=== PATIENT | female | born 1970 | race Hispanic/Latino ===

== ENCOUNTER 2016-11-07 21:27 | Emergency (ER) | payer OTHER ==
[~2016-11-07 21:27] MED LIST: AMANTADINE100 MG; AMOXIL500 MG PO; FLEXERIL10 MG PO; IBU800 MG PO; IBUPROFEN600 M1 PO; KEFLEX500 M1 PO; LIDODERM 5% PAT1 PAT TOP; MEDROL DOSEPAK1 PAC PO; METFORMIN HCL500 MG PO; MIRAPEX0.5 M1 PO; MOBIC 15MG15 MG PO; MOTRIN600 MG PO; PRAMIPEXOLE DI1.5 M1 PO; PRAMIPEXOLE DI1.5 MG PO; SELEGILINE HCL PO; SELEGILINE HCL5 M1 PO; SOMA 350MG TAB350 MG PO; TOPIRAMATE25 MG PO; VITAMIN D50000 I1; ZOFRAN ODT4 M1 PO; [UNRECOGNIZED DRUG - OTHER] PO
[2016-11-07 21:37] VITALS: BP 132/70
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
== END 2016-11-07 22:25 ==
LOC: ERH 21:27
DX: S60.552A Superficial foreign body of left hand, initial encounter (principal); S50.851A Superficial foreign body of right forearm, initial encounter; W19.XXXA Unspecified fall, initial encounter
CPT/HCPCS: 90471; 90714

== ENCOUNTER 2016-11-26 22:06 | Emergency (ER) | payer OTHER ==
[2016-11-26 22:16] VITALS: BP 154/86
[2016-11-26 23:01] LABS: ABSOLUTE BASOPHIL COUNT 0 /CUMM (0.0-0.2); MEAN PLATELET VOLUME 10.6 FL (7.4-10.4); PLATELET COUNT 159 /CUMM (130-400)
--- NOTE | 2016-11-26 23:06 | ED GI/GU/ABDOMINAL COMPLAINT ---
History of Present Illness General Chief Complaint: Abdominal Pain/Flank Pain Stated Complaint: ABDOMINAL PAIN Source: patient, family, old records, EMS Exam Limitations: no limitations Vital Signs & Intake/Output Vital Signs & Intake/Output Vital Signs Date Time Temp Pulse Resp B/P Pulse O2 O2 Flow FiO2 Ox Delivery Rate 11/26 2216 98.3 70 16 154/86 95 Room Air ED Intake and Output 11/27 0000 11/26 1200 Intake Total Output Total Balance Patient 160 lb Weight Allergies Coded Allergies: Opioids - Morphine Analogues (BECOMES SO LETHARGIC PEOPLE THINK SHE HAS OVERDOSED MEDS 02/10/16) Reconcile Medications Cephalexin (Keflex) 500 MG CAPSULE 1 TAB PO TID UTI Ibuprofen 600 MG TABLET 1 TAB PO Q6PRN PRN pain with food Ondansetron (Zofran Odt) 4 MG TAB.RAPDIS 1-2 TAB PO Q8H PRN NAUSEA Pramipexole Di-HCl (Pramipexole Dihydrochloride) 1.5 MG TABLET 1 TAB PO TID PARKINSONS (Reported) Pramipexole Di-HCl (Mirapex) 0.5 MG TABLET 1 MG PO BID PARKINSONS (Reported) Selegiline HCl 5 MG CAPSULE 1 CAP PO BID PARKINSONS (Reported) Selegiline HCl 5 MG CAPSULE 1 MG PO BID PARKINSONS (Reported) Triage Note: BIBA FOR C/C L SIDED ABD PAIN AND EPISODE OF VOMITING TODAY. 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 HX PARKINSONS. PT APPEARS LETHARGIC ON ARRIVAL, RESPONSIVE WHEN MOVED. PT WELL KNOWN TO FACILITY WITH HX SAME AT THIS BASELINE OF COGNITION AND LOC Triage Nurses Notes Reviewed? yes LMP (ages 10-50): unknown ? n Is pt currently ? No Onset: Evening Duration: minute(s):, constant, continues in ED Timing: recent history Quality/Severity: aching, moderate, throbbing Location: left lower quadrant Radiation: no radiation Activities at Onset: none Prior Abdominal Problems: similar symptoms Past Sexual History: Unobtainable at this time No Modifying Factors: none Associated Symptoms: abdominal pain, loss of appetite, nausea/vomiting HPI: prior to admission patient complains of left lower quadrant pain described as throbbing nonradiating and moderate to severe associated with nausea vomiting. She received Zofran en route. She denies fever chills chest pain cough shortness of breath headache dysuria rash bleeding. Past History Travel History Traveled to [place] past 21 day No Medical History Any Pertinent Medical History? 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 No Review of Systems Review of Systems Constitutional: Reports: no symptoms. EENTM: Reports: no symptoms. Respiratory: Reports: no symptoms. Cardiovascular: Reports: no symptoms. GI: Reports: see HPI, abdominal pain, nausea, vomiting. Genitourinary: Reports: no symptoms. Musculoskeletal: Reports: no symptoms. Skin: Reports: no symptoms. Neurological/Psychological: Reports: no symptoms. Hematologic/Endocrine: Reports: no symptoms. Immunologic/Allergic: Reports: no symptoms. All Other Systems: Reviewed and Negative Physical Exam Physical Exam General Appearance: well developed/nourished, alert, awake, anxious, moderate distress, obese Head: atraumatic, normal appearance Eyes: Bilateral: normal appearance, PERRL, EOMI, normal inspection. Ears, Nose, Throat, Mouth: hearing grossly normal, moist mucous membrane Neck: normal inspection, supple, full range of motion, normal alignment Respiratory: normal breath sounds, chest non-tender, no respiratory distress, quiet respiration, lungs clear Cardiovascular: regular rate/rhythm, normal peripheral pulses, norml femoral pulses equa Peripheral Pulses: 4+ carotid (R), 4+ carotid (L) Gastrointestinal: normal bowel sounds, soft, non-tender, no organomegaly Back: normal inspection, normal range of motion Extremities: normal range of motion, no ligament instability Neurologic/Psych: awake, alert, oriented x 3, spring inspector II-XII nml as tested, depressed affect, motor weakness Skin: intact, normal color, warm/dry Comments: Patient became upset with staff, swearing and took IV heplock out bleeding on the floor. Left ED without diagnostic evaluation or treatment. Core Measures ACS in differential dx? No Severe Sepsis Present: No Septic Shock Present: No Progress Differential Diagnosis: diverticulitis, kidney stone, UTI/pyelo Plan of Care: Orders Procedure Date/time Status URINALYSIS 11/26 2234 Complete LIPASE 11/26 2234 Complete COMPREHENSIVE METABOLIC PANEL 11/26 2234 Complete CBC WITHOUT DIFFERENTIAL 11/26 2234 Complete Laboratory Tests 11/26/162253: Anion Gap 10, Estimated GFR > 60, BUN/Creatinine Ratio 25.0, Glucose 92, Calcium 9.0, Total Bilirubin 0.8, AST 127 H, ALT 141 H, Alkaline Phosphatase 98, Total Protein 8.4 H, Albumin 4.2, Globulin 4.2, Albumin/Globulin Ratio 1.0 L, Lipase 134, CBC w Diff NO MAN DIFF REQ, RBC 4.82, MCV 81.5, MCH 26.3 L, RDW 15.8 H, MPV 10.6 H, Gran % 53.1, Lymphocytes % 39.5, Monocytes % 6.7, Eosinophils % 0.5 , Basophils % 0.2, Absolute Granulocytes 4.9, Absolute Lymphocytes 3.6 H, Absolute Monocytes 0.6, Absolute Eosinophils 0, Absolute Basophils 0, PUBS MCHC 32.3 L 11/26/162249: Urinalysis LIGHT H, Urine Color YEL, Urine Clarity CLEAR, Urine pH 6.0, Ur Specific [place] >= 1.030, Urine Protein TRACE H, Urine Ketones NEG, Urine Nitrite POS H, Urine Bilirubin NEG, Urine Urobilinogen 1.0, Ur Leukocyte Esterase SMALL H, Ur Microscopic SEDIMENT EXAMINED, Urine WBC 5-10 H, Ur Epithelial Cells FEW, Urine Hemoglobin NEG, Urine Glucose NEG Initial ED EKG: none Departure Departure Time of Disposition: 2304 Disposition: HOME OR SELF CARE Condition: Stable Clinical Impression Primary Impression: Abdominal pain Qualifiers: Abdominal location: left lower quadrant Qualified Code: R10.32 - Left lower quadrant pain Secondary Impressions: Nausea and vomiting Qualifiers: Vomiting type: unspecified Vomiting Intractability: non-intractable Qualified Code: R11.2 - Nausea with vomiting, unspecified Referrals: SHIMA ESQUEDA MD (PCP/Family) Departure Forms: General Discharge Information
[2016-11-26 23:10] LABS: ABSOLUTE EOSINOPHIL COUNT 0 /CUMM (0.0-0.7); ABSOLUTE GRANULOCYTE CT 4.9 /CUMM (1.4-6.5); ABSOLUTE LYMPH COUNT 3.6 /CUMM (1.2-3.4); ABSOLUTE MONOCYTE COUNT 0.6 /CUMM (0.10-0.60); BASOPHIL % 0.2 % (0.0-2.0); EOSINOPHIL % 0.5 % (0-5); GRANULOCYTE % 53.1 % (42.2-75.2); HEMATOCRIT 39.3 % (37-47); MEAN CORPUSCULAR HGB 26.3 PG (27.0-31.0); MEAN CORPUSCULAR HGB CONC 32.3 G/DL (33.0-37.0); MEAN CORPUSCULAR VOLUME 81.5 FL (81.0-99.0); RBC DISTRIBUTION WIDTH 15.8 % (11.5-14.5); RED BLOOD CELL CT 4.82 /CUMM (4.20-5.40); WHITE BLOOD CELL COUNT 9.2 /CUMM (4.8-10.8)
== END 2016-11-26 23:10 ==
LOC: ERH 22:06
PROVIDERS: Emergency Medicine
DX: R10.32 Left lower quadrant pain (principal); R11.2 Nausea with vomiting, unspecified
CPT/HCPCS: 81001; J1885

== ENCOUNTER 2016-12-07 19:59 | Emergency (ER) | payer OTHER ==
[~2016-12-07] VITALS: Ht 162.6 cm; Wt 72.6 kg
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
[2016-12-07 21:30] LABS: ABSOLUTE BASOPHIL COUNT 0 /CUMM (0.0-0.2); ABSOLUTE EOSINOPHIL COUNT 0 /CUMM (0.0-0.7); ABSOLUTE GRANULOCYTE CT 4.3 /CUMM (1.4-6.5); ABSOLUTE LYMPH COUNT 3.1 /CUMM (1.2-3.4); ABSOLUTE MONOCYTE COUNT 0.5 /CUMM (0.10-0.60); BASOPHIL % 0.5 % (0.0-2.0); EOSINOPHIL % 0.6 % (0-5); GRANULOCYTE % 53.7 % (42.2-75.2); HEMATOCRIT 37.6 % (37-47); MEAN CORPUSCULAR HGB 26.5 PG (27.0-31.0); MEAN CORPUSCULAR HGB CONC 32.6 G/DL (33.0-37.0); MEAN CORPUSCULAR VOLUME 81.1 FL (81.0-99.0); MEAN PLATELET VOLUME 9.4 FL (7.4-10.4); PLATELET COUNT 148 /CUMM (130-400); RBC DISTRIBUTION WIDTH 15.9 % (11.5-14.5); RED BLOOD CELL CT 4.64 /CUMM (4.20-5.40)
[2016-12-08 21:33] LABS: ABSOLUTE BASOPHIL COUNT 0 /CUMM (0.0-0.2); ABSOLUTE EOSINOPHIL COUNT 0 /CUMM (0.0-0.7); ABSOLUTE GRANULOCYTE CT 7.2 /CUMM (1.4-6.5); ABSOLUTE MONOCYTE COUNT 0.4 /CUMM (0.10-0.60); BASOPHIL % 0.3 % (0.0-2.0); EOSINOPHIL % 0 % (0-5); GRANULOCYTE % 74.6 % (42.2-75.2); HEMATOCRIT 38.8 % (37-47); MEAN CORPUSCULAR HGB 26.3 PG (27.0-31.0); MEAN CORPUSCULAR HGB CONC 32.3 G/DL (33.0-37.0); MEAN CORPUSCULAR VOLUME 81.4 FL (81.0-99.0); PLATELET COUNT 163 /CUMM (130-400); RED BLOOD CELL CT 4.76 /CUMM (4.20-5.40); WHITE BLOOD CELL COUNT 9.6 /CUMM (4.8-10.8)
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
--- NOTE | 2016-12-09 17:59 | ED PSYCH CRISIS CONSULTATION ---
See Addendum Crisis Consult Basic Assessment Date of Consult: 12/09/16 Responsible Person/Accompanied By: self/BIBA Insurance Authorization: Insurance #1: Insurance name: LAINA RIGGS Phone number: Policy number: [id number] Group number: Authorization number: ED Provider: Patient's ED Provider: ROBYN HURTADO MD Primary Care Physician: Patient's PCP: SHIMA ESQUEDA MD PCP's Current Psychiatrist: none reported Chief Complaint: Psychiatric Related Complaint Patient's Quote: I just want to go home Present Illness: Pt is a 46 yo female BIBA to [facility] ED wednesday evening with c/o of nausea and threats to kill self. Pt was upset that neighbors are smoking and it is upsetting her stomach. Pt presenting in ER as agitated and initially non- compliant. Pt had a prior inpatient psychiatric hospitalization at [facility] in nov 2014. Yesterday pt became increasingly more agitated and required restraints and medication sedation. Today pt continues to present as lethargic. Sleeping throughout day. Difficulty maintaing coherent thought or conversation. Pt mumbles she wants to go home. Pt unable to provide hx or current functioning level. Collateral provided by [facility] and friends John [phone] and Jann . [facility] reports that pt attends social groups. [facility] reports that pt is non-compliant with clinical tx and hasn't followed up in maintaining Seroquel 100mg that she received during most recent [facility] stay. Friends John and Jann report that pt seemed to be stable recently but has been complaining about neighbors smoking upsetting her stomach. They report pt has parkinson's disease and has been experiencing alot of hip pain and is suppossed to be scheduled for an MRI. Reportedly pt doesn't use etoh or substances. Pt reportedly highly susceptible to sedation from medications. Unclear why pt tox screen positive for amphetamines. Pt will need to be h/o in ED for further evaluation when more awake and alert Patient's Address: [address] [place] [address] [address] [place] [address] Other Who Do You Live With? Patient/Self Family/Informants Interviewed: collateral provided by friend Jann Stark Allergies - Coded Allergies: Opioids - Morphine Analogues (BECOMES SO LETHARGIC PEOPLE THINK SHE HAS OVERDOSED MEDS 02/10/16) Current Medications - Scheduled Medications Cephalexin (Keflex) 500 MG CAPSULE 1 TAB PO TID UTI #21 TAB Prescribed by RICA CORTES on 03/12/16 Pramipexole Di-HCl (Pramipexole Dihydrochloride) 1.5 MG TABLET 1 TAB PO TID PARKINSONS #90 (Reported) Entered as Reported by RAMOS MARION on 02/10/162009 Pramipexole Di-HCl (Mirapex) 0.5 MG TABLET 1 MG PO BID PARKINSONS (Reported) Entered as Reported by RAMON CRUZ on 05/13/16 0013 Selegiline HCl 5 MG CAPSULE 1 CAP PO BID PARKINSONS (Reported) Entered as Reported by RAMOS MARION on 02/10/162010 Selegiline HCl 5 MG CAPSULE 1 MG PO BID PARKINSONS (Reported) Entered as Reported by RAMON CRUZ on 05/13/16 0014 Scheduled PRN Medications Ibuprofen 600 MG TABLET 1 TAB PO Q6PRN PRN pain #50 TAB Prescribed by GAVIN FAIR MD on 09/15/16 Ondansetron (Zofran Odt) 4 MG TAB.RAPDIS 1-2 TAB PO Q8H PRN NAUSEA #10 Prescribed by RICA CORTES on 03/12/16 Laboratory Results: Laboratory Tests 12/08/16 2350: Lactic Acid Cancelled 12/08/16 2115: Anion Gap 14, Estimated GFR > 60, BUN/Creatinine Ratio 25.0, Glucose 111 H, Lactic Acid 1.4, Calcium 8.4, Magnesium 1.7, Total Bilirubin 0.9, AST 139 H, ALT 153 H, Alkaline Phosphatase 103, Creatine Kinase 843 H, Troponin I 0.02, Total Protein 7.7, Albumin 3.7, Globulin 4.0, Albumin/Globulin Ratio 0.9 L, TSH 2.800, CBC w Diff NO MAN DIFF REQ, RBC 4.76, MCV 81.4, MCH 26.3 L, RDW 16.0 H, MPV 10.0, Gran % 74.6, Lymphocytes % 21.2, Monocytes % 3.9, Eosinophils % 0, Basophils % 0.3, Absolute Granulocytes 7.2 H, Absolute Lymphocytes 2.0, Absolute Monocytes 0.4, Absolute Eosinophils 0, Absolute Basophils 0, PUBS MCHC 32.3 L, Salicylates < 1.0, Acetaminophen < 10.0 L 12/08/162113: Creatine Kinase Cancelled, Salicylates Cancelled, Acetaminophen Cancelled Past History Past Medical History Neurological: Parkinson's disease, seizure EENT: NONE Cardiovascular: NONE Respiratory: NONE Gastrointestinal: NONE Hepatic: hepatitis C Renal: NONE Musculoskeletal: CHRONIC PAIN Psychiatric: depression Endocrine: NONE Blood Disorders: NONE Cancer(s): NONE 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: 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 Past Surgical History Surgical History: non-contributory Psychosocial History Strengths/Capabilities: has housing, VNA services, attends social club at [facility] Physical Limitations (Interventions): difficulty with ambulation, sometimes has difficulty performing AdL's Psychiatric Treatment History Psych Treatment Psychiatric Treatment Yes Inpatient Treatment Yes Outpatient Treatment Yes Location of Treatment [facility] Reason for Treatment depression Response to Treatment noncompliant with clinical treatment and psychotropic medication Diagnosis by History: Depressive Disorder NOS Substance Use/Abuse History Drug Use/Abuse Substances Used/Abused No Substance Abuse Treatment Substance Abuse Treatment Past Substance Abuse [place] No Comments: Pt denies etoh and substance use. PT tox screen positive for amphetamines Current Mental Status Mental Status Orientation: pt remains sedated; lethargic; difficulty keeping her head up and eyes open. Pt mumbling. Affect: Depressed Speech: Mumbled Neuro-vegetative: Energy Decreased, Sleep Disturbance Appearance Appearance- Dress/Hygiene: pt in hospital gown; disheveled; placed in wheelchair by tech and moved to consultation . Behaviors Thought Process: pt sedated. difficulty processing thoughts Thought Content: pt mumbled wanting to go home. denies si/hi Memory: Impaired Insight: Poor SI/HI Risk Assessment Past Suicidal Ideation/Attempts Yes Current Suicidal Ideation/Att Yes (upon ED arrival) Past Homicidal Ideation/Att: No Current Homicidal Ideation/Attempts No Degree of Intent: None Danger To: Self Gravely Disabled: Inability, Lack of Insight, Poor Judgment Risk Factors: chronic/serious med cond., high anxiety/distress, history of suicide atmpts, SA/MH hospitalized, lives alone, limited support Lethality Ratin PTSD Checklist PTSD Done? patient declined ED Management Sitter: Yes Restraints: Yes DSM5/PS Stressors/Medical Prob Diagnosis' (DSM 5, Stressors, Medical): MDD (F33.2) Neighbors smoking cigarettes/cigars upsetting stomach parkinson's disease right hip pain Current GAF: 25 Departure Disposition Psych Medical Clearance Date: 12/09/16 Medically Cleared at: 1630 Time Started: 1635 Time Ended: 171 Psychiatrist Consulted: Shaw Barker MD Date Disposition Established: 12/09/16 Time Disposition Established: 1729 Plan for Disposition - Modality: H/O Re-eval by crisis in morning Facility: [facility] Rationale for Disposition: Pt continues to be lethargic. Difficulty staying alert. Pt mumbling. unable to complete sentences or maintain coherent thought. Plan to h/o to re-evaluate tomorrow when pt is more alert. Referrals SHIMA ESQUEDA MD (PCP/Family)
[2016-12-10 12:32] VITALS: BP 128/76
== END 2016-12-10 13:11 ==
LOC: ERH 19:59
PROVIDERS: Emergency Medicine
DX: R45.851 Suicidal ideations (principal); R45.1 Restlessness and agitation; R00.0 Tachycardia, unspecified; I10 Essential (primary) hypertension; R56.9 Unspecified convulsions; G20 Parkinson's disease
CPT/HCPCS: 80307; 81001; 93005; 93010; G0463; G0480; J1200; J1630; J3101

== ENCOUNTER 2016-12-13 06:09 | Emergency (ER) | payer OTHER ==
[~2016-12-13] VITALS: Ht 170.2 cm; Wt 79.4 kg
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
[2016-12-13 06:21] VITALS: BP 138/89
[2016-12-13 06:44] LABS: ABSOLUTE BASOPHIL COUNT 0 /CUMM (0.0-0.2); ABSOLUTE EOSINOPHIL COUNT 0.1 /CUMM (0.0-0.7); ABSOLUTE GRANULOCYTE CT 6.2 /CUMM (1.4-6.5); ABSOLUTE LYMPH COUNT 3.1 /CUMM (1.2-3.4); ABSOLUTE MONOCYTE COUNT 0.7 /CUMM (0.10-0.60); BASOPHIL % 0.2 % (0.0-2.0); EOSINOPHIL % 0.9 % (0-5); GRANULOCYTE % 61.7 % (42.2-75.2); HEMATOCRIT 40.2 % (37-47); MEAN CORPUSCULAR HGB 26.5 PG (27.0-31.0); MEAN CORPUSCULAR HGB CONC 32.5 G/DL (33.0-37.0); MEAN CORPUSCULAR VOLUME 81.6 FL (81.0-99.0); MEAN PLATELET VOLUME 9.7 FL (7.4-10.4); PLATELET COUNT 231 /CUMM (130-400); RBC DISTRIBUTION WIDTH 15.6 % (11.5-14.5); RED BLOOD CELL CT 4.93 /CUMM (4.20-5.40); WHITE BLOOD CELL COUNT 10.1 /CUMM (4.8-10.8)
== END 2016-12-13 10:15 ==
LOC: ERH 06:09
PROVIDERS: Emergency Medicine
DX: T68.XXXA Hypothermia, initial encounter (principal); G20 Parkinson's disease; M79.605 Pain in left leg; R56.9 Unspecified convulsions; X31.XXXA Exposure to excessive natural cold, initial encounter
CPT/HCPCS: 81003; 93005; 93010; 96360; 96361; 99291

== ENCOUNTER 2016-12-29 20:51 | Emergency (ER) | payer OTHER ==
[~2016-12-29] VITALS: Ht 157.5 cm; Wt 72.6 kg
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
--- NOTE | 2016-12-29 21:37 | CT SCAN REPORT ---
EXAMINATION: CT HEAD WITHOUT CONTRAST CLINICAL INFORMATION: Evaluate for acute intracranial hemorrhage. COMPARISON: CT scan of the head 12/08/2016. TECHNIQUE: Contiguous axial imaging was performed from the skull base to vertex without intravenous administration of contrast. DLP: 529.16 mGy-cm FINDINGS: There is no acute intracranial hemorrhage or abnormal extra-axial collection. No intracranial mass effect or midline shift. Lateral and third ventricles are normal. No hydrocephalus. Betancur-white matter differentiation is preserved and there is no evidence of acute territorial infarct. The calvarium and skull base are intact. Mastoid air cells and middle ear cavities are well aerated. Visualized paranasal sinuses are well-aerated. IMPRESSION: Normal CT scan of the head. No evidence of acute intracranial hemorrhage.
--- NOTE | 2016-12-29 22:07 | RADIOLOGY REPORT ---
EXAMINATION: XR FOREARM, LEFT CLINICAL INFORMATION: Fall. Pain. COMPARISON: None TECHNIQUE: AP and lateral views of the left forearm were obtained. FINDINGS: No fracture. Radius and ulna are intact. The wrist and elbow are normal. No soft tissue abnormality. IMPRESSION: Normal left forearm.
--- NOTE | 2016-12-29 22:08 | RADIOLOGY REPORT ---
EXAMINATION: XR HIP, LEFT CLINICAL INFORMATION: Fall. Pain. COMPARISON: Pelvis. Left hip. TECHNIQUE: Two views of the left hip. FINDINGS: Bones and soft tissues are normal. No fracture. Alignment is anatomic. Hip joint space is maintained. IMPRESSION: Normal left hip.
[2016-12-29 23:07] VITALS: BP 130/74
== END 2016-12-29 23:13 ==
LOC: ERH 20:51
DX: S09.90XA Unspecified injury of head, initial encounter (principal); S60.212A Contusion of left wrist, initial encounter; M25.552 Pain in left hip; W19.XXXA Unspecified fall, initial encounter; Y93.9 Activity, unspecified; Y92.9 Unspecified place or not applicable
CPT/HCPCS: 73090-LT; 73502-LT

== ENCOUNTER 2017-01-31 19:16 | Emergency (ER) | payer OTHER ==
[~2017-01-31] VITALS: Ht 162.6 cm; Wt 72.6 kg
[2017-01-31 19:32] VITALS: BP 145/74
== END 2017-01-31 20:35 | disposition admitted as inpatient to this hospital (09) ==
LOC: ERH 19:16
DX: L29.8 Other pruritus (principal)
CPT/HCPCS: 99281

== ENCOUNTER 2017-02-05 21:30 | Emergency (ER) | payer OTHER ==
[~2017-02-05] VITALS: Ht 157.5 cm; Wt 65.8 kg
--- NOTE | 2017-02-05 22:25 | ED MVC/FALL/TRAUMA COMPLAINT ---
History of Present Illness General Chief Complaint: Fall Stated Complaint: FALL L SIDED PAIN Source: patient Exam Limitations: no limitations Vital Signs & Intake/Output Vital Signs & Intake/Output Vital Signs Date Time Temp Pulse Resp B/P Pulse O2 O2 Flow FiO2 Ox Delivery Rate 02/05 2345 96.0 56 18 126/74 98 Room Air 02/05 2159 97.9 76 18 142/96 97 Room Air ED Intake and Output 02/06 0000 02/05 1200 Intake Total 0 Output Total Balance 0 Intake, Oral 0 Patient 145 lb Weight Allergies Coded Allergies: Opioids - Morphine Analogues (BECOMES SO LETHARGIC PEOPLE THINK SHE HAS OVERDOSED MEDS 02/10/16) Reconcile Medications Cephalexin (Keflex) 500 MG CAPSULE 1 TAB PO TID UTI Ibuprofen 600 MG TABLET 1 TAB PO Q6PRN PRN pain with food Ondansetron (Zofran Odt) 4 MG TAB.RAPDIS 1-2 TAB PO Q8H PRN NAUSEA Pramipexole Di-HCl (Pramipexole Dihydrochloride) 1.5 MG TABLET 1 TAB PO TID PARKINSONS (Reported) Pramipexole Di-HCl (Mirapex) 0.5 MG TABLET 1 MG PO BID PARKINSONS (Reported) Selegiline HCl 5 MG CAPSULE 1 CAP PO BID PARKINSONS (Reported) Selegiline HCl 5 MG CAPSULE 1 MG PO BID PARKINSONS (Reported) Triage Note: RECEIVED 47 YO FEMALE C/O FELL AT HOME ON TABLE, PT REPORTS LEFT RIBCAGE AREA PAIN, PAIN INCREASES WITH WEIGHT BEARING Triage Nurses Notes Reviewed? yes Onset: Abrupt Timing: single episode today Severity: moderate Method of Injury: fall Loss of Consciousness: no loss of consciousness Modifying Factors: Worsens With: movement, palpation. Associated Symptoms: muscle spasm HPI: 47 yo woman h/o parkinson's, fell approximately 7 hours ago, a mechanical fall. She notes pain in her left upper back, hurts to move. She notes no other injury, no loss of consciousness. No syncopal symptoms. Past History Travel History Traveled to [place] past 21 day No Medical History Any Pertinent Medical History? 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 No Review of Systems Review of Systems Constitutional: Reports: no symptoms. Eyes: Reports: no symptoms. Ears, Nose, Throat, Mouth: Reports: no symptoms. Respiratory: Reports: no symptoms. Cardiovascular: Reports: no symptoms. Gastrointestinal/Abdominal: Reports: no symptoms. Genitourinary: Reports: no symptoms. Musculoskeletal: Reports: no symptoms. Skin: Reports: no symptoms. Neurological/Psychological: Reports: no symptoms. All Other Systems: Reviewed and Negative Physical Exam Physical Exam General Appearance: well developed/nourished, mild distress Head: atraumatic, normal appearance Eyes: Bilateral: normal appearance. Ears, Nose, Throat, Mouth: hearing grossly normal Neck: normal inspection, supple, full range of motion, normal alignment Respiratory: normal breath sounds, chest non-tender, no respiratory distress, quiet respiration, lungs clear Cardiovascular: regular rate/rhythm Gastrointestinal: normal bowel sounds, soft, non-tender, no organomegaly Back: muscle spasm, no vertebral tenderness, left upper back tenderness to palpation Extremities: normal range of motion Neurologic/Psych: no motor/sensory deficits, awake, alert, oriented x 3 Skin: intact, normal color, warm/dry Core Measures ACS in differential dx? No Severe Sepsis Present: No Septic Shock Present: No Progress Differential Diagnosis: contusion vs other. Plan of Care: Orders Procedure Date/time Status CT CHEST WO IV CONTRAST 02/05 2205 Active Diagnostic Imaging: Viewed by Me: CT Scan. Discussed w/RAD: CT Scan. Radiology Impression: chest ct... no rib fx, no abnormality... full report below. Comments: PATIENT: AMIRA CHAPPELL PRESENT AGE: 47 PATIENT ACCOUNT NO: [id number] : 69 LOCATION: [facility] ORDERING PHYSICIAN: TATUM GARCIA MD SERVICE DATE: 02/05/17 EXAM TYPE: CAT - CT CHEST WO IV CONTRAST EXAMINATION: CT CHEST WITHOUT CONTRAST CLINICAL INFORMATION: Fall. Left-sided rib pain. COMPARISON: Chest x-ray 08/27/2013 TECHNIQUE: Multidetector volumetric CT imaging of the chest was done. Axial MIP volume rendering provided. Sagittal and coronal reformatted images were obtained. DLP: 163.17 mGy-cm FINDINGS: LUNGS: The lungs are clear with no evidence of inflammation or nodules. MEDIASTINUM: No fluid collection or hematoma. Soft tissue density in the prevascular retrosternal space consistent with residual thymus tissue. No pericardial effusion. There is vascular calcifications of the coronary arteries. PLEURA: There is no pleural effusion. No pleural mass or thickening. AXILLA: No lymphadenopathy. UPPER ABDOMEN: Calcified granuloma in the superior right lobe of liver. OSSEOUS STRUCTURES: Unremarkable. IMPRESSION: No acute abnormality CT chest. No rib fracture. DICTATED BY: NIXON SALAZAR MD DATE/TIME DICTATED:02/05/172310 VICE PRESIDENT OF MARKETING:KIAH DATE/TIME TRANSCRIBED:02/05/172310 CONFIDENTIAL, DO NOT COPY WITHOUT APPROPRIATE AUTHORIZATION. <Electronically signed in Other Vendor System> SIGNED BY: NIXON SALAZAR MD 02/05/170 Departure Departure Disposition: HOME OR SELF CARE Condition: Stable Clinical Impression Primary Impression: Fall Secondary Impressions: Back pain, Contusion Referrals: SHIMA ESQUEDA MD (PCP/Family) Departure Forms: Customer Survey General Discharge Information Comments discussed at length with patient and family... ct scan benign... pt safe for discharge.
--- NOTE | 2017-02-05 23:20 | CT SCAN REPORT ---
EXAMINATION: CT CHEST WITHOUT CONTRAST CLINICAL INFORMATION: Fall. Left-sided rib pain. COMPARISON: Chest x-ray 08/27/2013 TECHNIQUE: Multidetector volumetric CT imaging of the chest was done. Axial MIP volume rendering provided. Sagittal and coronal reformatted images were obtained. DLP: 163.17 mGy-cm FINDINGS: LUNGS: The lungs are clear with no evidence of inflammation or nodules. MEDIASTINUM: No fluid collection or hematoma. Soft tissue density in the prevascular retrosternal space consistent with residual thymus tissue. No pericardial effusion. There is vascular calcifications of the coronary arteries. PLEURA: There is no pleural effusion. No pleural mass or thickening. AXILLA: No lymphadenopathy. UPPER ABDOMEN: Calcified granuloma in the superior right lobe of liver. OSSEOUS STRUCTURES: Unremarkable. IMPRESSION: No acute abnormality CT chest. No rib fracture.
[2017-02-05 23:45] VITALS: BP 126/74
== END 2017-02-06 00:03 ==
LOC: ERH 21:30
DX: T14.8 Other injury of unspecified body region (principal); M54.9 Dorsalgia, unspecified; W19.XXXA Unspecified fall, initial encounter; Y92.009 Unspecified place in unspecified non-institutional (private) residence as the place of occurrence of the external cause; Y92.9 Unspecified place or not applicable

== ENCOUNTER 2017-03-19 12:12 | Inpatient (IN) | payer OTHER ==
[~2017-03-19] VITALS: Ht 154.9 cm; Wt 73.5 kg
--- NOTE | 2017-03-19 12:17 | ED PSYCHIATRIC COMPLAINT ---
History of Present Illness General Chief Complaint: Psychiatric Related Complaint Stated Complaint: BIBA +SI, PSYCH Source: patient, old records, EMS, police Exam Limitations: clinical condition Vital Signs & Intake/Output Vital Signs & Intake/Output Vital Signs Date Time Temp Pulse Resp B/P B/P Pulse O2 O2 Flow FiO2 Mean Ox Delivery Rate 03/19 1819 96.9 76 133/76 03/19 1510 97.9 80 18 128/74 97 Room Air 03/19 1236 98.4 84 18 138/79 97 Allergies Coded Allergies: Opioids - Morphine Analogues (BECOMES SO LETHARGIC PEOPLE THINK SHE HAS OVERDOSED MEDS 02/10/16) celecoxib (From CELEBREX) (UNKNOWN 03/19/17) cyclobenzaprine (UNKNOWN 03/19/17) Reconcile Medications Pramipexole Di-HCl (Pramipexole Dihydrochloride) 1.5 MG TABLET 1 TAB PO TID PARKINSONS (Reported) Selegiline HCl 5 MG CAPSULE 1 CAP PO BID PARKINSONS (Reported) Triage Nurses Notes Reviewed? yes Onset: Abrupt Duration: JUST PRIOR TO ARRIVAL Timing: single episode today Severity: severe Associated Symptoms: anxiety HPI: 47 year old female found by police trying to jump off a bridge. She was standing on the other side of the bridge and leaning backwards. EMS received multiple 911 calls. They were able to distract her and multiple people grabbed her and pulled her back over the railing. According to PD patient evicted from her apartment this week. History of parkinsons disease, depression, Hep C. Past History Travel History Traveled to [place] past 21 day No Medical History Any Pertinent Medical History? 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 No Review of Systems Review of Systems Constitutional: Denies: fever. EENTM: Reports: no symptoms. Respiratory: Reports: no symptoms. Cardiovascular: Reports: no symptoms. GI: Reports: no symptoms. Genitourinary: Reports: no symptoms. Musculoskeletal: Reports: no symptoms. Skin: Reports: no symptoms. Neurological/Psychological: Reports: anxiety, depressed, emotional problems. Hematologic/Endocrine: Reports: no symptoms. Immunologic/Allergic: Reports: no symptoms. All Other Systems: Reviewed and Negative Physical Exam Physical Exam General Appearance: well developed/nourished, alert, awake, anxious, mild distress, moderate distress Head: atraumatic Eyes: Bilateral: PERRL. Neck: normal inspection, supple Respiratory: normal breath sounds, chest non-tender, no respiratory distress Cardiovascular: regular rate/rhythm Neurological/Psychiatric: awake, agitated, alert, TEARFUL Appearance/Memory/Insight: disheveled, impaired insight Behavoir/Eye Contact/Speech: uncooperative, increased rate of speech Thoughts/Hallucinations: UNABLE TO ASSESS SAD PERSONS Done? unobtained due to conditi Progress Differential Diagnosis: anxiety, agitation, suicidal ideation Plan of Care: Orders Procedure Date/time Status Regular Diet 03/20 B Active Patient Data - inpatient psych 03/19 2145 Active Admit to inpatient psych 03/19 214 Active EKG 03/19 2145 Active Vital Signs 03/19 1816 Active Inpt Psych Teach/Educate 03/19 1816 Active Nutritional Intake, Monitor 03/19 1816 Active Inpt Psych Auricular Acupunctu 03/19 1816 Active Admit to inpatient psych 03/19 1448 Active ED CRISIS PSYCH CONSULT 03/19 1314 Active THYROID STIMULATING HORMONE 03/19 1235 Active THYROXINE 03/19 1235 Active FREE T4 03/19 1235 Active Intake & Output 03/19 1223 Complete Continuous Observation Monitor 03/19 1220 Complete URINE DRUGS OF ABUSE 03/19 1220 Complete HUMAN BETA HCG SCREEN 03/19 1220 Active ETHANOL 03/19 1220 Active COMPREHENSIVE METABOLIC PANEL 03/19 1220 Active CBC WITHOUT DIFFERENTIAL 03/19 1220 Complete Lab Add-on Test 03/19 UNK Active Nursing Misc 03/19 UNK Active Activity/Ambulation 03/19 UNK Active Current Medications Sig/Lopez Start time Last Medication Dose Stop Time Status Admin Pramipexole 1.5 MG 5PM 03/20 1700 AC Dihydrochloride (Mirapex) Pramipexole 3 MG 0700 03/20 0700 AC Dihydrochloride (Mirapex) Selegiline HCl 5 MG 0700,1700 03/20 0700 AC (Eldepryl 5MG) Acetaminophen 650 MG Q6-PRN PRN 03/19 2145 AC (Tylenol) Al Hydroxide/Mg 30 ML Q4-6 PRN PRN 03/19 2145 AC Hydroxide (Maalox Plus) Trazodone HCl 50 MG AT BEDTIME NEED.. 03/19 2145 AC (Desyrel) Lorazepam 2 MG ONCE ONE 03/19 1230 CAN (Ativan) 03/19 1231 Laboratory Tests 03/19/17 123: Serum Alcohol < 10.0 03/19/17 123: Anion Gap 14, Estimated GFR > 60, BUN/Creatinine Ratio 25.0, Glucose 114 H, Calcium 8.9, Total Bilirubin 0.7, AST 119 H, ALT 139 H, Alkaline Phosphatase 107, Total Protein 7.9, Albumin 4.0, Globulin 3.9, Albumin/Globulin Ratio 1.0 L , TSH Pending, Free T4 0.83, Thyroxine (T4) 9.7, Total Beta HCG NEGATIVE, CBC w Diff NO MAN DIFF REQ, RBC 4.79, MCV 80.6 L, MCH 26.3 L, RDW 15.6 H, MPV 9.5, Gran % 52.3, Lymphocytes % 41.1, Monocytes % 6.0, Eosinophils % 0.2, Basophils % 0.4, Absolute Granulocytes 4.3, Absolute Lymphocytes 3.4, Absolute Monocytes 0.5 , Absolute Eosinophils 0, Absolute Basophils 0, PUBS MCHC 32.6 L, Urine Opiates Screen < 100.00, Methadone Screen < 40, Barbiturate Screen < 60, Ur Phencyclidine Scrn < 6.00, Amphetamines Screen > 1450.0 H, U Benzodiazepines Scrn < 85, Urine Cocaine Screen < 50, Urine Cannabis Screen < 5.00 PATIENT CALMING DOWN AFTER ARRIVAL TO HOSPITAL. LABS, DRUG SCREEN, CRISIS CONSULT ORDERED. 14:48 PATIENT ADMITTED TO [facility] (KRYSTAL LEMUS,AARON) Departure Departure Time of Disposition: 8 Disposition: STILL A PATIENT Condition: Stable Clinical Impression Primary Impression: Suicidal ideation Secondary Impressions: Depression Referrals: SHIMA ESQUEDA MD (PCP/Family) Departure Forms: Customer Survey General Discharge Information Psych Admission Note Psychiatric Admission: I have seen and evaluated AMIRA CHAPPELL. I have also reviewed all the pertinent lab results and diagnostic results. AMIRA CHAPPELL will be admitted to our inpatient Psychiatric unit for treatment and care.
[2017-03-19 12:47] LABS: ABSOLUTE BASOPHIL COUNT 0 /CUMM (0.0-0.2); ABSOLUTE EOSINOPHIL COUNT 0 /CUMM (0.0-0.7); ABSOLUTE GRANULOCYTE CT 4.3 /CUMM (1.4-6.5); ABSOLUTE LYMPH COUNT 3.4 /CUMM (1.2-3.4); ABSOLUTE MONOCYTE COUNT 0.5 /CUMM (0.10-0.60); BASOPHIL % 0.4 % (0.0-2.0); EOSINOPHIL % 0.2 % (0-5); GRANULOCYTE % 52.3 % (42.2-75.2); HEMATOCRIT 38.6 % (37-47); MEAN CORPUSCULAR HGB 26.3 PG (27.0-31.0); MEAN CORPUSCULAR HGB CONC 32.6 G/DL (33.0-37.0); MEAN CORPUSCULAR VOLUME 80.6 FL (81.0-99.0); MEAN PLATELET VOLUME 9.5 FL (7.4-10.4); PLATELET COUNT 160 /CUMM (130-400); RBC DISTRIBUTION WIDTH 15.6 % (11.5-14.5); RED BLOOD CELL CT 4.79 /CUMM (4.20-5.40); WHITE BLOOD CELL COUNT 8.2 /CUMM (4.8-10.8)
--- NOTE | 2017-03-19 14:15 | ED PSYCH CRISIS CONSULTATION ---
Crisis Consult Basic Assessment Date of Consult: 03/19/17 Responsible Person/Accompanied By: self Insurance Authorization: Insurance #1: Insurance name: LAINA RIGGS Phone number: Policy number: [id number] Group number: Authorization number: ED Provider: Patient's ED Provider: AARON RICE MD Primary Care Physician: Patient's PCP: SHIMA ESQUEDA MD PCP's Current Psychiatrist: none Chief Complaint: Psychiatric Related Complaint Patient's Quote: "No one will help me." Present Illness: Pt is a 47yo Single Female who was brought in by Police after they stopped her from jumping off a bridge. Pt has to be pulled back over the railing after she was on the other side leaning backwards on the wet bridge in the rain. Pt denies current SI and has no insight into the severity of her actions. "I just wanted people to listen to me. No one will help me." Pt explains that she is getting evicted from her apartment because her cousin was living with her and he was not supposed to be living with her. Pt was tearful as she speaks. Pt also reports that she has had ongoing conflict with her neighbors because they smoke and she can not be around smoke because of her parkinson's disease. Pt denies that she feels depressed as she cries while speaking. She reports poor sleep and poor appetite and feeling of hopelessness and helplessness. Pt has a hx of prior inpt psych tx and was last on CPS in 2014. Pt is currently in out pt tx at [facility]. Crisis spoke ti Yuli at [facility] who explained that Pt has no been compliant with her out pt tx and does not take psych meds and refuses to see the psychiatrist. Pt has only has case management services through [facility]. Yuli explained that pt has received multiple warnings about ot being allowed to have people stay with her, but has not listened. She got an eviction notice yesterday informing that she has 30 days to move. Pt will keep her section [address] and will have another place to move to. Yuli also informed that pt admitted to a peer that she was going to go to the bridge to get media attention because she thinks no one is helping her. Case reviewed with Dr. Phillip of Psychiatry and has poor insight, poor judgement, and poor impulse control. She is aq danger to herself. Pt will be admitted to [facility]. Pt agreed to sign in. Patient's Address: [address] [place] [address] [place] [address] Other Who Do You Live With? Patient/Self Family/Informants Interviewed: [facility] Allergies - Coded Allergies: Opioids - Morphine Analogues (BECOMES SO LETHARGIC PEOPLE THINK SHE HAS OVERDOSED MEDS 02/10/16) Current Medications - Scheduled Medications Cephalexin (Keflex) 500 MG CAPSULE 1 TAB PO TID UTI #21 TAB Prescribed by RICA CORTES on 03/12/16 Pramipexole Di-HCl (Pramipexole Dihydrochloride) 1.5 MG TABLET 1 TAB PO TID PARKINSONS #90 (Reported) Entered as Reported by RAMOS MARION on 02/10/162009 Pramipexole Di-HCl (Mirapex) 0.5 MG TABLET 1 MG PO BID PARKINSONS (Reported) Entered as Reported by RAMON CRUZ on 05/13/16 0013 Selegiline HCl 5 MG CAPSULE 1 CAP PO BID PARKINSONS (Reported) Entered as Reported by RAMOS MARION on 02/10/162010 Selegiline HCl 5 MG CAPSULE 1 MG PO BID PARKINSONS (Reported) Entered as Reported by RAMON CRUZ on 05/13/16 0014 Scheduled PRN Medications Ibuprofen 600 MG TABLET 1 TAB PO Q6PRN PRN pain #50 TAB Prescribed by GAVIN FAIR MD on 09/15/16 Ondansetron (Zofran Odt) 4 MG TAB.RAPDIS 1-2 TAB PO Q8H PRN NAUSEA #10 Prescribed by RICA CORTES on 03/12/16 Laboratory Results: Laboratory Tests 03/19/17 1235: Serum Alcohol < 10.0 03/19/17 1235: Anion Gap 14, Estimated GFR > 60, BUN/Creatinine Ratio 25.0, Glucose 114 H, Calcium 8.9, Total Bilirubin 0.7, AST 119 H, ALT 139 H, Alkaline Phosphatase 107, Total Protein 7.9, Albumin 4.0, Globulin 3.9, Albumin/Globulin Ratio 1.0 L , Total Beta HCG NEGATIVE, CBC w Diff NO MAN DIFF REQ, RBC 4.79, MCV 80.6 L, MCH 26.3 L, RDW 15.6 H, MPV 9.5, Gran % 52.3, Lymphocytes % 41.1, Monocytes % 6.0, Eosinophils % 0.2, Basophils % 0.4, Absolute Granulocytes 4.3, Absolute Lymphocytes 3.4, Absolute Monocytes 0.5, Absolute Eosinophils 0, Absolute Basophils 0, PUBS MCHC 32.6 L, Urine Opiates Screen < 100.00, Methadone Screen < 40, Barbiturate Screen < 60, Ur Phencyclidine Scrn < 6.00, Amphetamines Screen > 1450.0 H, U Benzodiazepines Scrn < 85, Urine Cocaine Screen < 50, Urine Cannabis Screen < 5.00 Past History Past Medical History Neurological: Parkinson's disease, seizure EENT: NONE Cardiovascular: NONE Respiratory: NONE Gastrointestinal: NONE Hepatic: hepatitis C Renal: NONE Musculoskeletal: CHRONIC PAIN Psychiatric: depression Endocrine: NONE Blood Disorders: NONE Cancer(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 Past Surgical History Surgical History: non-contributory Psychosocial History Strengths/Capabilities: has housing, VNA services, attends social club at [facility] Physical Limitations (Interventions): difficulty with ambulation, sometimes has difficulty performing AdL's Psychiatric Treatment History Psych Treatment Psychiatric Treatment Yes Inpatient Treatment Yes Outpatient Treatment Yes Location of Treatment [facility] and [facility] Reason for Treatment Depression Dates of Treatment multiple Response to Treatment non-compliant Diagnosis by History: Depression Substance Use/Abuse History Drug Use/Abuse Substances Used/Abused No Substance Abuse Treatment Substance Abuse Treatment Past Substance Abuse [place] No Inpatient Treatment No Outpatient Treatment No Current Mental Status Mental Status Orientation: Person, Place, Situation Affect: Anxious, Depressed, Hopeless, Sad Speech: WNL Neuro-vegetative: Anhedonia, Appetite Decreased, Helpless, Sleep Disturbance Appearance Appearance- Dress/Hygiene: unkempt, disheveled, tearful Behaviors Thought Process: WNL Thought Content: WNL Memory: WNL Insight: Poor SI/HI Risk Assessment Past Suicidal Ideation/Attempts Yes Current Suicidal Ideation/Att No Past Homicidal Ideation/Att: No Current Homicidal Ideation/Attempts No Degree of Intent: made attempt Danger To: Self Gravely Disabled: Lack of Insight, Poor Impulse Control, Poor Judgment Risk Factors: access to lethal means, chronic/serious med cond., high anxiety/ distress, history of suicide atmpts, SA/MH hospitalized, poor impulse control Lethality Ratin (most severe) PTSD Checklist PTSD Done? patient declined ED Management Sitter: Yes Restraints: No DSM5/PS Stressors/Medical Prob Diagnosis' (DSM 5, Stressors, Medical): Unspecified Depression F32.9 Current GAF: 25 Comments: Parkinson's Disease, hx of seizure Departure Disposition Psych Medical Clearance Date: 03/19/17 Medically Cleared at: 1400 Time Started: 1400 Time Ended: 0 Psychiatrist Consulted: Kenji LEMUS,Edward Date Disposition Established: 03/19/17 Time Disposition Established: 1429 Plan for Disposition - Modality: Inpatient Psychiatry Facility: [facility] Rationale for Disposition: safety and stabilization of sx Type of IP Admission: Voluntary Referrals SHIMA ESQUEDA MD (PCP/Family)
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
[2017-03-19 18:19] VITALS: BP 133/76
--- NOTE | 2017-03-19 22:03 | History & Physical ---
General Information and HPI MD Statement: I have seen and personally examined AMIRA CHAPPELL and documented this H&P. The patient is a 47 year old F who presented with a patient stated chief complaint of [suicidal ideation]. Source of Information: patient Exam Limitations: no limitations History of Present Illness: 47 yo F with h/o Parkinson's disease, untreated Hep C, prediabetes, chronic anemia, is admitted to Inpatient psychiatry for suicidal ideation and depression. Please refer to Psych H and P for details. She follows Dr. Velasquez at [facility] forr her Parkinson's disease which she was diagnosed with after her first child about 15-20 yrs ago at [place]. She denies smoking, alcohol use or drugs. She currently denies chest pain, dyspnea, GI or symptoms. Allergies/Medications Allergies: Coded Allergies: Opioids - Morphine Analogues (BECOMES SO LETHARGIC PEOPLE THINK SHE HAS OVERDOSED MEDS 02/10/16) celecoxib (From CELEBREX) (UNKNOWN 03/19/17) cyclobenzaprine (UNKNOWN 03/19/17) Home Med list Pramipexole Di-HCl (Pramipexole Dihydrochloride) 1.5 MG TABLET 1 TAB PO TID PARKINSONS (Reported) Selegiline HCl 5 MG CAPSULE 1 CAP PO BID PARKINSONS (Reported) Compliance With Home Meds: FAIR Past History Travel History Traveled to [place] past 21 day No Medical History Neurological: Parkinson's disease EENT: NONE Cardiovascular: HX. BRADYCARDIA HX. PALPITATIONS Respiratory: NONE Gastrointestinal: NONE Hepatic: HEPATITIS C Renal: NONE Musculoskeletal: CHRONIC PAIN Psychiatric: depression Endocrine: PREDIABETES Blood Disorders: anemia Cancer(s): NONE TRAINING FACILITATOR/Reproductive: endometriosis History of MRSA: No History of VRE: No History of CDIFF: No Isolation History: Standard Tetanus Vaccine: 11/07/16 Surgical History Surgical History: Past Family/Social History Family History Relations & Conditions if any FATHER (HT[place], [place], [place].). MOTHER (HTN, [place], [place].). SISTER (Two sisters have Parkinson's disease.). Siblings (DM and HTN.). Psychosocial History Where do you live? Home Who Do You Live With? self Services at Home: None Primary Language: Micronesian Smoking Status: Never Smoked ETOH Use: denies use Illicit Drug Use: denies illicit drug use Functional Ability ADLs Independent: dressing, eating, toileting, bathing. Ambulation: independent IADLs Independent: housework, telephone, transportation, medication admin. Employment History Employment Disability Profession/Employer [employer] Review of Systems Review of Systems Constitutional: Denies: chills, fever, weakness. EENTM: Reports: no symptoms. Cardiovascular: Denies: chest pain, orthopena, palpitations. Respiratory: Denies: cough, short of breath, sputum production. GI: Denies: abdominal pain, diarrhea, nausea, vomiting. Genitourinary: Denies: dysuria, frequency, hematuria. Musculoskeletal: Reports: no symptoms. Neurological/Psychological: Reports: see HPI. All Other Systems: Reviewed and Negative Exam & Diagnostic Data Last 24 Hrs of Vital Signs/I&O Vital Signs Date Time Temp Pulse Resp B/P B/P Pulse O2 O2 Flow FiO2 Mean Ox Delivery Rate 03/19 1819 96.9 76 133/76 03/19 1510 97.9 80 18 128/74 97 Room Air 03/19 1236 98.4 84 18 138/79 97 Intake & Output 03/20 0800 03/20 0000 03/19 1600 Intake Total 0 Output Total Balance 0 Intake, Oral 0 Patient 162 lb 140 lb Weight Physical Exam General Appearance Alert, Oriented X3, Cooperative, No Acute Distress Skin No Significant Lesion HEENT Atraumatic, PERRLA Neck Supple Cardiovascular Regular Rate, Normal S1, Normal S2, No Murmurs Lungs Clear to Auscultation, Normal Air Movement Abdomen Normal Bowel Sounds, Soft, No Tenderness Neurological Exam Findings: Normal Gait, Strength at 5/5 X4 Ext, Sensation Intact, Cranial Nerves 3-12 NL, Slow speech Cranial Nerves II through XII: Grossly intact Extremities No Edema, Normal Pulses, No Tenderness/Swelling Last 24 Hrs of Labs/Rico: Laboratory Tests 03/19/17 1235: Serum Alcohol < 10.0 03/19/17 1235: Anion Gap 14, Estimated GFR > 60, BUN/Creatinine Ratio 25.0, Glucose 114 H, Calcium 8.9, Total Bilirubin 0.7, AST 119 H, ALT 139 H, Alkaline Phosphatase 107, Total Protein 7.9, Albumin 4.0, Globulin 3.9, Albumin/Globulin Ratio 1.0 L , TSH 2.490, Free T4 0.83, Thyroxine (T4) 9.7, Total Beta HCG NEGATIVE, CBC w Diff NO MAN DIFF REQ, RBC 4.79, MCV 80.6 L, MCH 26.3 L, RDW 15.6 H, MPV 9.5, Gran % 52.3, Lymphocytes % 41.1, Monocytes % 6.0, Eosinophils % 0.2, Basophils % 0.4, Absolute Granulocytes 4.3, Absolute Lymphocytes 3.4, Absolute Monocytes 0.5 , Absolute Eosinophils 0, Absolute Basophils 0, PUBS MCHC 32.6 L, Urine Opiates Screen < 100.00, Methadone Screen < 40, Barbiturate Screen < 60, Ur Phencyclidine Scrn < 6.00, Amphetamines Screen > 1450.0 H, U Benzodiazepines Scrn < 85, Urine Cocaine Screen < 50, Urine Cannabis Screen < 5.00 Diagnostic Data EKG Results -- CXR Results -- Assessment/Plan Assessment: 47 yo F admitted to Inpatient Psychiatry for depression and suicidal ideation. 1. Continue management per Psych team. 2. Parkinson's disease. Continue pramipexole and selegiline (dosed at 7 am and 5 pm). 3. Transaminitis in the setting of Hep C. Patient should follow up with PCP and GI for eventual management of Hep C. 4. Microcytic anemia. Stable. 5. Prediabetes. HbA1C - 6.3 (Sep 2016). DVT ppx low risk, early ambulation. As Ranked By This Provider Problem List: 1. Depression 2. Suicidal behavior 3. Parkinsons disease 4. Transaminitis Miscellaneous Miscellaneous Documentation Attending Case Discussed With: Mohan Fisher MD Primary Care Physician: SHIMA ESQUEDA MD Patient sees these Specialists Dr. Ron [facility] Level of Patient Care: SETH Carranza MD Review Statement Attending Statement Attending MD Statement: examined this patient, discuss w/resident/PA/REFRIGERATION SYSTEMS INSTALLER
--- NOTE | 2017-03-19 22:03 | Admission Certification ---
Admission Certification Certification Statement - As attending physician, I certify that at the time of - admission, based on clinical presentation, severity of - symptoms, need for further diagnostic testing and - therapeutic interventions, and risk of adverse outcomes - without in-hospital treatment, in my clinical assessment, - this patient requires an acute hospital stay for a minimum - of two nights or longer. I have also considered psychsocial - factors such as support system, advanced age, financial - issues, cognitive issues, and failed out-patient treatments, - past re-admission history, safety of patient, and lack of - compliance as applicable. Specific rationale supporting this admission is: Depression, suicidal ideation.
[2017-03-20 07:55] VITALS: BP 121/80
[2017-03-20 12:24] VITALS: BP 108/59
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
[2017-03-20 15:37] VITALS: BP 118/81
[2017-03-20 20:14] VITALS: BP 123/66
[2017-03-21 07:56] VITALS: BP 117/78
[2017-03-21 12:03] VITALS: BP 112/72
--- NOTE | 2017-03-21 12:52 | CP SOUTH PROGRESS NOTE PSYCH ---
Psych (Inpt) Progress Note Progress Note Include the following elements, when applicable: Involvement in the active treatment of the patient with behavioral observations of the patient and the patient's response to the treatment. Review of the ongoing treatment process in the context of the treatment plan. Indication of how multi-disciplinary staff members are carrying out the treatment plan. Plans for future interventions and recommendations for revision of the treatment plan. Liaison with other physicians/providers. Progress Note: Chart reviewed and progress d/w nursing staff. Interviewed patient this morning. Extremely dysphoric and irritable. "This place is so boring. they never get my meds right. I like mac so much better. I want to go home". No insight evidenced regarding dangerous behavior or accompanying depressive symptoms. She denies SI/ HI. Re: meds, we clarify her regimen numerous times which is what has been ordered in [place]. Vitals wnl. No new labs today. MSE: Poorly groomed HF sitting on chair. Frustrated, irritable. +PArkinsonism. Speech increased rate and amount, mildly dysarthric. Mood "you are making me MORE depressed being here!". Affect irritable, constricted, labile. TP perseverative, TC focused on discharge. Denies SI/HI or perceptual disturbance. Cognition grossly intact. I/J limited. A/P: Ongoing poor insight into concerning behavior, limited recognition of mood symptoms. Continues to require inpatient hospitalization for safety/ stabilization.
[2017-03-21 15:46] VITALS: BP 118/96
[2017-03-21 19:58] VITALS: BP 118/78
--- NOTE | 2017-03-22 10:35 | CP SOUTH PROGRESS NOTE PSYCH ---
Psych (Inpt) Progress Note Progress Note Chart reviewed BP 118/78, Pulse 74/min, Temp 96.7 Sleep log showed Alysha slept well after a little episode around 22:30. She was complaining about staff and hospital No new labs today Interviewed patient this morning. Background: 47 y/o SHF with history of PD brought in by police who found her attempting to jump off a bridge in [place] (she adamantly denied she wanted to jump) Mental State 03/22/2017 Alert, dysphoric and irritable. I just want to go home. She denies SI/HI. Marginal grooming, seemed unsteady, easily frustrated, irritable. Speech increased rate and amount, mildly dysarthric. Claims being inpatient is making her more depressed, Affect irritable and angry, cursing in Emirati after interview Denied hallucinations, cognition grossly intact. Poor insight and judgment. A/P: Irritable, focused on discharge, did not want any medication changes Will follow up with regular treatment team tomorrow
[2017-03-22 12:12] VITALS: BP 126/69
[2017-03-22 15:58] VITALS: BP 112/70
[2017-03-22 19:42] VITALS: BP 121/68
[2017-03-23 07:40] VITALS: BP 110/73
--- NOTE | 2017-03-23 12:02 | SOCIAL WORKER PROG NOTE PSYCH ---
Social Work Progress Note Progress Note Patient seen individually, and her niuean has continued to improve, so that interview was easily conducted. Patient reported that she is feeling good, and states that she has had her teeth fixed, and it has made a big difference in her self-esteem. Patient reports that she has been "kicked out" of her apartment, but indicates that she has an apartment that she can move to that she can move to, and states that she found place that will be better for her, and a central location. Patient descibes her behavior on the bridge where he was thyreatening to jump off, as her means of "getting people's attention", and drawing attention to housing situation. Patient was asked what she did in spare time. and she states that she will have to get arrangements made since it is the first of the month. Patient is active in social Patient does appear to be very goal diected and easy to engage. It was difficult to understand exactly what her reasoning was with her threatening to jump from bridge, and whom that would impact; however, it clearly made sense to her, Patient is at present feeling that she is not suicidal. She stressed that she did not want to hurt self. She was soing laundry, and was interested in being discharged soon, wemphasizing that she does not think she needs any medication. Actually, this is very upbeat mood today.
[2017-03-23 12:47] VITALS: BP 125/71
--- NOTE | 2017-03-23 15:28 | SOCIAL WORKER PROG NOTE PSYCH ---
Social Work Progress Note Progress Note Called to speak with Roberta Bush, patient's benzene worker. Apparently, Alysha does not have an apartment lined up as she had stated to me earlier; however she will be vacating her present residence, which is seen as detrimental for her. Roberta relayed that patient has retained her section 8 voucher, and Roberta is scrambling to find another apartment in [place], and she thinks it would be an improvement from where she has been living. Maribel is also helping with this search, so it is not something that patient has been able to work on by herself. Roberta reinforced that Alysha is indeed active in community, and participates in a number of things such as bingo. She gets help from a family care nurse for showering. Patient has an upcoming neurology appointment. Roberta reiterated that [facility] staff wish that she would agree to medication. She used to see and have a good relationship with Dr Paz. They are working to get a different apartment and are optimistic that they can get place soon.
--- NOTE | 2017-03-23 15:41 | CP SOUTH PROGRESS NOTE PSYCH ---
Psych (Inpt) Progress Note Progress Note Include the following elements, when applicable: Involvement in the active treatment of the patient with behavioral observations of the patient and the patient's response to the treatment. Review of the ongoing treatment process in the context of the treatment plan. Indication of how multi-disciplinary staff members are carrying out the treatment plan. Plans for future interventions and recommendations for revision of the treatment plan. Liaison with other physicians/providers. Progress Note: PSYCHIATRIST NOTE, 03/23/2017: I discussed this patient's presentation and progress to date, current mental status, treatment and discharge planning with staff team today in the daily morning ITTM and also spoke with her one-to-one in her room following a temper tantrum in the kitchen area which actually escalated after security arrived; she was being asked to go to her room and this patient likes nothing less than to be told what to do unless perhaps being told what NOT to do. After a loud outburst with no effort to harm herself or others patient did settle down. Her complaint to me was that she wasn't given coffee at breakfast "and everyone else was;" if that were the case (which staff assert it is not) why would she wait several hours to starting getting upset over it. Patient was also at that time talking about wanting to go home "now" though our understanding is that she has been evicted from her current apartment and while she still has a "Section 8 voucher," apparently another place is not immediately available though I spoke with Mr. Campbell today about requesting the housing authority make every effort to accommodate this patient for whom at this time a major reason for her needing to remain in this level of care is that she doesn't have anywhere to go.
[2017-03-23 20:18] VITALS: BP 138/80
[2017-03-24 04:45] VITALS: BP 115/78
[2017-03-24 08:06] VITALS: BP 117/72
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
[2017-03-24 12:25] VITALS: BP 128/86
--- NOTE | 2017-03-24 18:04 | CP SOUTH PROGRESS NOTE PSYCH ---
Psych (Inpt) Progress Note Progress Note Include the following elements, when applicable: Involvement in the active treatment of the patient with behavioral observations of the patient and the patient's response to the treatment. Review of the ongoing treatment process in the context of the treatment plan. Indication of how multi-disciplinary staff members are carrying out the treatment plan. Plans for future interventions and recommendations for revision of the treatment plan. Liaison with other physicians/providers. Progress Note: PSYCHIATRIST NOTE, 03/24/2017: I discussed this patient's slow progress to date, current mental status, treatment and discharge planning with staff team today in the daily morning ITTM and also attempted once again to speak with her; she was short/otoniel and yet verbally abusive in what she did say, angry at still being in the hospital. There was another behavioral outburst today which made staff concerned that with her gait instability related to parkinsonism she might be at risk to fall; she had been found on the floor of her room during the night, said she had fallen and was evaluated by the covering medical housekeeping coordinator; I placed patient on 1:1 sitter for Fall Risk during unpredictable intervals of high emotion and motor agitation. She is relentless in her desire for discharge and at this point it appears that our continuing to thwart that desire is the patient's main source of emotional upset.
[2017-03-24 19:37] VITALS: BP 95/55
[2017-03-25 08:11] VITALS: BP 110/78
--- NOTE | 2017-03-25 11:39 | SOCIAL WORKER PROG NOTE PSYCH ---
Social Work Progress Note Progress Note Patient was seen by Dr Phillip and myself this morning, following our clinical team meeting and my meeting with Roberta Bush, patient's correctional casework specialist at [facility]. Roberta had told me that Alysha could move back to her apartment while they were looking into another apartment in [place], which is a quieter building with fewer disturbances and people "hanging around". Patient was informed that if she were to let anyone into her apartment she would be removed right away. She was informed that the apartment complex in [place] has cameras. Dr. Phillip suggested that Alysha consider recommendations by treaters at [facility] that she consider medication evaluation as it may be helpful for. Patient informed that if she were on medication a visiting nurse could be obtained. As of now patient has home health aide only who helps her with bathing due to her problem with foot and Parkinson. Patient reiterated that she is not suicidal, and that her incident on bridge was made to make a point, but she did not intend to actually hurt herself. Patient denied any suicidal ideation and wants to return home today. Dr. Phillip is in agreement with this plan, and it was reinforced that she must stick with the rules of the place she is living. Roberta Bush can pick patient up in order to provide transportation back home. It would be after 2:30 today. Spoke with Galina from [facility], and they will follow up on medication referral if patient verbalizes a willingness. Plan is discharge today a little after 2:30 p.m., Roberta Bush picking her up.
[2017-03-25 12:29] VITALS: BP 116/70
--- NOTE | 2017-03-25 14:06 | CP SOUTH PROGRESS NOTE PSYCH ---
Psych (Inpt) Progress Note Progress Note Include the following elements, when applicable: Involvement in the active treatment of the patient with behavioral observations of the patient and the patient's response to the treatment. Review of the ongoing treatment process in the context of the treatment plan. Indication of how multi-disciplinary staff members are carrying out the treatment plan. Plans for future interventions and recommendations for revision of the treatment plan. Liaison with other physicians/providers. Progress Note: PSYCHIATRIST NOTE (DISCHARGE), 03/25/2017: I discussed this patient's progress to date, current mental status, treatment and discharge plans with staff team today in the daily morning ITTM and Mr. Campbell and I met with patient together in individual session prior to discharging her to resume her ongoing/shelter treatment with [facility] [place], [place].; she will be picked up for return home by Roberta Bush, her [facility] case resource manager; we encouraged patient to agree to having a medication evaluation in the near future which can be set up by Ms. Bush; it has been said that patient likes Dr. Parikh; perhaps her eval. could be set up with him. In the meantime, patient will continue in f/u with Torito Webster M.D., as well as the [facility], [place], [place]. One of patient's primary stressors in recent past/at present is her living situation; Ms. Bush told us patient will soon be relocated to a smaller, quieter residence where she will likely be much happier. Patient has had at least one histrionic episode/temper outburst a day since she has been here but since it was made clear that she would be discharged today patient has been much different, quieter, calmer, less irritable and demanding; she is pleased to be going home and shows no current evidence of suicidal or homicidal ideation, plans, intent or impulses and has worked on her safety plan with her case resource manager, Ms. Bush. Once again during this admission , patient has refused to consider starting an psychotropic medication; however, she has eventually become able to calm herself without meds, though initially she once required a PRN of I.M. Ativan to help her do so. She has maintained her contacts with [facility] staff and neurological appointments at [place] and does take her parkinson's medications reliably. Patient will continue taking and has sufficient supplies of: Eldepryl, 5mg 2x/day, at 7am and 5pm Mirapex, 3mg daily at 7am Mirapex, 1.5mg daily at 5pm
--- NOTE | 2017-03-25 14:07 | DISCHARGE SUMMARY REPORT-PSYCH ---
Visit Information Visit Dates/Diagnosis' Admission Date: 03/19/17 Discharge Date: 03/25/17 Reason for Admission: "They found me on a bridge." Psy Discharge Primary Diag: Unspecified Mood Disorder R/O contribution to mood symptoms by parkinsonism Psy Discharge Secondary Diag: parkinson's disease histrionic traits Hospital Course Significant Lab Findings: glucose = 112; HDL = 38; AST = 106, ALT = 122; KINGSLEY = less than 10.0; urine for drugs of abuse--positive for amphetamines (greater than 1,450ng/ml; most probably a false positive cross reactivity with eldypril which she is taking for parkinson's disease); for details of all normal range laboratory data from this admission, see the electronic medical record Course Complications: none Consultations: patient was seen for an admission medical H&P by Melany Fisher M.D., and followed medically during this admission by the hospitalist staff/[facility] medical attending staff Allergies: Coded Allergies: Opioids - Morphine Analogues (BECOMES SO LETHARGIC PEOPLE THINK SHE HAS OVERDOSED MEDS 03/31/17) celecoxib (From CELEBREX) (UNKNOWN 03/31/17) cyclobenzaprine (UNKNOWN 03/31/17) Hospital Course/TX Response: I spoke with patient one-on-one in her room following a temper tantrum in the kitchen area which actually escalated after security arrived; she was being asked to go to her room and this patient likes nothing less than to be told what to do unless perhaps being told what NOT to do. After a loud outburst with no effort to harm herself or others patient did settle down. Her complaint to me was that she wasn't given coffee at breakfast "and everyone else was;" if that were the case (which staff assert it is not) why would she wait several hours to starting getting upset over it. Patient was also at that time talking about wanting to go home "now" though our understanding is that she has been evicted from her current apartment and while she still has a "Section 8 voucher," apparently another place is not immediately available though I spoke with Mr. Campbell today about requesting the housing authority make every effort to accommodate this patient for whom at this time a major reason for her needing to remain in this level of care is that she doesn't have anywhere to go. Patient was discharged to resume her ongoing/group home treatment with [facility] of [place], [place].; she will be picked up for return home by Roberta Bush, her [facility] family caseworker; we encouraged patient to agree to having a medication evaluation in the near future which can be set up by Eleazar; it has been said that patient likes Dr. Parikh; perhaps her eval. could be set up with him. In the meantime, patient will continue in f/u with Torito Webster M.D. , as well as the [facility], [place], [place]. One of patient's primary stressors in recent past/at present is her living situation; Brayan Eleazar told us patient will soon be relocated to a smaller, quieter residence where she will likely be much happier. Patient has had at least one histrionic episode/temper outburst a day since she has been here but since it was made clear that she would be discharged today patient has been much different, quieter, calmer, less irritable and demanding; she is pleased to be going home and shows no current evidence of suicidal or homicidal ideation, plans, intent or impulses and has worked on her safety plan with her family caseworker, Eleazar. Once again during this admission, patient has refused to consider starting an psychotropic medication; however, she has eventually become able to calm herself without meds , though initially she once required a PRN of I.M. Ativan to help her do so. She has maintained her contacts with [facility] staff and neurological appointments at [facility] and does take her parkinson's medications reliably. Discharge HBIPS - Tobacco Use Treatment Offered Post DC Medications Offered: Not Applicable Post DC Tobacco Treatment Plan: Not Applicable - EtOH/Drug Use D/O Treatment Offered Post DC Medications Offered: NA-No EtOH/Drug Use D/O Post DC EtOH/SubAbuse TX Plan: NA-No EtOH/Drug Use D/O Metabolic Screening - Screen if on a Neuroleptic Medication - Metabolic screening should include: - Blood Pressure, BMI, Glucose or Hgb A1c, & a - Lipid profile from within the past 365 days. Metabolic Screening ([x]) Not Applicable, patient not on a neuroleptic. OR () Patient on a neuroleptic(s) . Enter below results for Glucose or Hemoglobin A1C, and lipid panel if obtained during the last 365 days. BMI: 30.600 Blood Pressure: 116/70 Laboratory Results (If applicable): Discharge Instructions General Discharge Information Discharge Medications: Patient has sufficient supplies of the following to continue taking as: Eldepryl, 5mg 2x/day, at 7am and 5pm Mirapex, 3mg daily at 7am Mirapex, 1.5mg daily at 5pm Multiple Neuroleptics: ([x]) Not Applicable OR Document below three failed attempts at monotherapy, or a plan to taper to monotherapy, or augmentation of Clozapine. () Patient's Diet: heart healthy Patient's Activity: as per her neurologists at [facility] DC Disposition: to home Recommendations: I would recommend attempt to look further into the urine tox. screens positive for amphetamines only since 11/2016 (negative prior to then back to 2012, as far as our testing goes) Referred To: Patient was referred back to resume her ongoing/group home outpatient treatment with the [facility], staff; she was picked up on discharge by her family caseworker, Roberta Bush; she has been encouraged to accept an appointment with psychiatrist, Dr. Parikh, of [facility] for a medication re-evaluation; she has previously reported having a positive relationship with him but would not agree to make a visit to him at this time. She will continue treatment/ monitoring with [facility], [place], [place] who are managing her anti -parkinsonian medications. The [facility] plan is to in the near future relocate patient to a smaller, quieter [facility]-supervised residence which should be less stressful for her. Copies To: JANEY LEMUS,CHANTAL VANCE M.D.,JAVI
== END 2017-03-25 15:00 | DRG 753 ==
LOC: ERH 12:12 → CP SOUTH 14:48 → ERHI 14:48 → CP SOUTH 18:09 → ENRESERV 23:59 → CP SOUTH 03-22 19:28
PROVIDERS: Emergency Medicine; ADMIT Psychiatry & Neurology Addiction Medicine
DX: F39 Unspecified mood [affective] disorder (principal); G20 Parkinson's disease
CPT/HCPCS: 80307; 93005; 93010; G0480; J2060

== ENCOUNTER 2017-03-31 20:19 | Emergency (ER) | payer OTHER ==
[2017-03-31 20:55] LABS: ABSOLUTE BASOPHIL COUNT 0 /CUMM (0.0-0.2); ABSOLUTE EOSINOPHIL COUNT 0.1 /CUMM (0.0-0.7); ABSOLUTE GRANULOCYTE CT 4.4 /CUMM (1.4-6.5); ABSOLUTE MONOCYTE COUNT 0.5 /CUMM (0.10-0.60); BASOPHIL % 0.3 % (0.0-2.0); EOSINOPHIL % 0.9 % (0-5); GRANULOCYTE % 55.6 % (42.2-75.2); HEMATOCRIT 38.5 % (37-47); MEAN CORPUSCULAR VOLUME 81.3 FL (81.0-99.0); MEAN PLATELET VOLUME 9.7 FL (7.4-10.4); PLATELET COUNT 162 /CUMM (130-400); RBC DISTRIBUTION WIDTH 15.7 % (11.5-14.5); RED BLOOD CELL CT 4.73 /CUMM (4.20-5.40); WHITE BLOOD CELL COUNT 7.9 /CUMM (4.8-10.8)
--- NOTE | 2017-03-31 22:21 | ED GENERAL ADULT ---
See Addendum History of Present Illness General Chief Complaint: Chest Pain Stated Complaint: CP X 3 DAYS Source: patient Exam Limitations: no limitations Vital Signs & Intake/Output Vital Signs & Intake/Output Vital Signs Date Time Temp Pulse Resp B/P B/P Pulse O2 O2 Flow FiO2 Mean Ox Delivery Rate 03/31 2253 98.2 62 16 118/72 95 Room Air 03/316 98.5 75 18 123/83 97 Room Air ED Intake and Output 04/01 0000 03/31 1200 Intake Total Output Total Balance Patient 161 lb Weight Weight Reported by Patient Measurement Method Allergies Coded Allergies: Opioids - Morphine Analogues (BECOMES SO LETHARGIC PEOPLE THINK SHE HAS OVERDOSED MEDS 03/31/17) celecoxib (From CELEBREX) (UNKNOWN 03/31/17) cyclobenzaprine (UNKNOWN 03/31/17) Reconcile Medications Pramipexole Di-HCl (Pramipexole Dihydrochloride) 1.5 MG TABLET 1 TAB PO TID PARKINSONS (Reported) Selegiline HCl 5 MG CAPSULE 1 CAP PO BID PARKINSONS (Reported) Triage Note: TRIAGE: PATIENT TO ER FROM HOME REPORTING CP, INTERMITTENT SINCE ONSET THIS AM. PATIENT REPORTS "MY FAMILY HAS HAD MANY HEART ATTACKS SO I JUST WANT TO MAKE SURE." SPEECH CLEAR. Triage Nurses Notes Reviewed? yes HPI: 47-year-old female with history of Parkinson's, palpitations, hep C, depression presenting with intermittent episodes of left-sided pressure-like sensation that will last approximately 30 minutes before self resolving, reports has been occurring for many years. Patient has no worsening or alleviating factors. States that all happened both at rest and with exertion. Patient is currently asymptomatic and not experiencing any pain. Reports attempting prior treadmill stress testing many years ago which she was unable to complete secondary to leg pain. Denies diaphoresis, nausea, vomiting, lightheadedness, dizziness, shortness of breath. Denies fevers, cough, sputum production. No trauma to the area or recent shortness activity. (YUNEIL GARCIA,KEIRY) Past History Travel History Traveled to [place] past 21 day No Medical History Any Pertinent Medical History? see below for history Neurological: Parkinson's disease EENT: NONE Cardiovascular: HX. BRADYCARDIA HX. 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 MOTHER (HTN, DM, [place].). SISTER (Two sisters have Parkinson's disease.). Siblings (DM and HTN.). Hx Contributory? No (KEIRY BRICE PA-C) Review of Systems Review of Systems Constitutional: Reports: no symptoms. Respiratory: Reports: no symptoms. Cardiovascular: Reports: chest pain. Denies: edema, orthopena, palpitations, syncope. GI: Reports: no symptoms. Genitourinary: Reports: no symptoms. Musculoskeletal: Reports: no symptoms. Skin: Reports: no symptoms. Neurological/Psychological: Reports: no symptoms. (KEIRY BRICE PA-C) Physical Exam Physical Exam General Appearance: well developed/nourished, no apparent distress Head: atraumatic Respiratory: normal breath sounds, chest non-tender, lungs clear Cardiovascular: regular rate/rhythm, normal peripheral pulses Gastrointestinal: soft, non-tender Neurologic/Psych: awake, alert, oriented x 3 Skin: intact, normal color, warm/dry Core Measures ACS in differential dx? No CVA/TIA Diagnosis: No Severe Sepsis Present: No Septic Shock Present: No (KEIRY BRICE PA-C) Progress Differential Diagnoses I considered the following diagnoses in my evaluation of the patient: [PA versus angina versus pleurisy versus pleural effusion versus pneumonia versus GERD versus musculoskeletal pain versus nonspecific chest pain] Plan of Care: Orders Procedure Date/time Status TROPONIN LEVEL 03/31 2345 Active Add-on Test (ER Only) 03/31 2232 Active Add-on Test (ER Only) 03/31 2119 Active PHOSPHORUS 03/31 2043 Complete MAGNESIUM 03/31 2043 Complete D-DIMER 03/31 2043 Complete TROPONIN LEVEL 03/31 2042 Complete COMPREHENSIVE METABOLIC PANEL 03/31 2042 Complete CBC WITHOUT DIFFERENTIAL 03/31 2042 Complete EKG 03/31 2021 Active Laboratory Tests 04/01/17 0005: Troponin I Pending 03/31/172042: Anion Gap 9, Estimated GFR > 60, BUN/Creatinine Ratio 21.7, Glucose 112 H, Calcium 9.0, Phosphorus 3.9, Magnesium 2.2, Total Bilirubin 0.5, AST 106 H, ALT 122 H, Alkaline Phosphatase 113, Troponin I < 0.01, Total Protein 7.4, Albumin 3.9, Globulin 3.5, Albumin/Globulin Ratio 1.1, D-Dimer High Sensitivty < 200, CBC w Diff NO MAN DIFF REQ, RBC 4.73, MCV 81.3, MCH 26.0 L, RDW 15.7 H, MPV 9.7, Gran % 55.6, Lymphocytes % 37.5, Monocytes % 5.7, Eosinophils % 0.9, Basophils % 0.3, Absolute Granulocytes 4.4, Absolute Lymphocytes 3.0, Absolute Monocytes 0.5, Absolute Eosinophils 0.1, Absolute Basophils 0, PUBS MCHC 32.0 L EKG shows normal sinus rhythm, initial troponin negative. All other labs aren't remarkable. Pt signed out with chest x-ray and repeat troponin pending (KEIRY BRICE PA-C) Initial ED EKG: normal axis, rhythm (sinus), rate (71), No ST segment abnormalities, non-specific T wave inversion in lead III that is unchanged from prior EKG (KEIRY BRICE PA-C) Departure Departure Disposition: HOME OR SELF CARE Condition: Stable Clinical Impression Primary Impression: Chest pain Referrals: SHIMA ESQUEDA MD (PCP/Family) Departure Forms: Customer Survey General Discharge Information (KEIRY BRICE PA-C) PA/SALES AND MARKETING MANAGER Co-Sign Statement Statement: ED Attending supervision documentation- [] I saw and evaluated the patient. I have also reviewed all the pertinent lab results and diagnostic results. I agree with the findings and the plan of care as documented in the PA's/SALES AND MARKETING MANAGER's documentation. [x] I have reviewed the ED Record and agree with the PA's/SALES AND MARKETING MANAGER's documentation. [] Additions or exceptions (if any) to the PAs/SALES AND MARKETING MANAGER's note and plan are summarized below: [] (RADHA LEMUS,TATUM Michaels) Critical Care Note Critical Care Note Critical Care Time: non-applicable (KEIRY BRICE PA-C)
--- NOTE | 2017-03-31 23:18 | RADIOLOGY REPORT ---
EXAMINATION: XR CHEST CLINICAL INFORMATION: Intermittent sharp left chest pain COMPARISON: CT from 02/05/2017 TECHNIQUE: 2 views of the chest were obtained. FINDINGS: The lungs are hypoexpanded. There is no focal consolidation, edema, or effusion. No pneumothorax. The cardiomediastinal silhouette is within normal limits. No acute osseous abnormality. IMPRESSION: No acute pulmonary findings.
[2017-04-01 00:47] VITALS: BP 143/93
== END 2017-04-01 01:47 ==
LOC: ERH 20:19
PROVIDERS: Emergency Medicine
DX: R07.89 Other chest pain (principal)
CPT/HCPCS: 93005; 93010

== ENCOUNTER 2017-04-24 19:53 | Emergency (ER) | payer OTHER ==
[2017-04-24 20:01] VITALS: BP 144/98
--- NOTE | 2017-04-24 20:31 | ED UPPER/LOWER EXTREMITY COMPL ---
History of Present Illness General Chief Complaint: Hand or Wrist Injury Stated Complaint: " ?LT PINKY INJURY" Source: patient, family, old records Exam Limitations: no limitations Vital Signs & Intake/Output Vital Signs & Intake/Output Vital Signs Date Time Temp Pulse Resp B/P B/P Pulse O2 O2 Flow FiO2 Mean Ox Delivery Rate 04/24 2014 Room Air 04/24 2001 97.0 77 20 144/98 99 Allergies Coded Allergies: Opioids - Morphine Analogues (BECOMES SO LETHARGIC PEOPLE THINK SHE HAS OVERDOSED MEDS 03/31/17) celecoxib (From CELEBREX) (UNKNOWN 03/31/17) cyclobenzaprine (UNKNOWN 03/31/17) Reconcile Medications Pramipexole Di-HCl (Pramipexole Dihydrochloride) 1.5 MG TABLET 1 TAB PO TID PARKINSONS (Reported) Selegiline HCl 5 MG CAPSULE 1 CAP PO BID PARKINSONS (Reported) Triage Note: PER PT L 5TH DIGIT PAIN Triage Nurses Notes Reviewed? yes Past History Travel History Traveled to [place] past 21 day No Medical History Any Pertinent Medical History? see below for history Neurological: Parkinson's disease EENT: NONE Cardiovascular: HX. BRADYCARDIA HX. 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 MOTHER (HTN, DM, [place].). SISTER (Two sisters have Parkinson's disease.). Siblings (DM and HTN.). Hx Contributory? No Review of Systems Review of Systems Respiratory: Reports: no symptoms. All Other Systems: Reviewed and Negative Physical Exam Physical Exam General Appearance: well developed/nourished, mild distress Head: atraumatic Eyes: Bilateral: PERRL, EOMI. Ears, Nose, Throat: normal pharynx, normal ENT inspection, hearing grossly normal Neck: normal inspection, supple Cardiovascular/Respiratory: regular rate/rhythm Back: normal inspection Skin: intact, normal color, warm/dry Lymphatic: no anterior cervical jordan Progress Differential Diagnosis: arterial insufficiency, cellulitis, CHF, compartment syndrome, contusion, dislocation, DVT, fracture, gout, septic arthritis, sprain, tendon injury Plan of Care: Orders Procedure Date/time Status XRY-FINGERS, LEFT 04/24 2002 Active Departure Departure Condition: Stable Referrals: SHIMA ESQUEDA MD (PCP/Family) Departure Forms: Customer Survey General Discharge Information Orders Procedure Date/time Status XRY-FINGERS, LEFT 04/24 2002 Active Departure Departure Condition: Stable Referrals: SHIMA ESQUEDA MD (PCP/Family) Departure Forms: Customer Survey General Discharge Information
--- NOTE | 2017-04-24 20:57 | RADIOLOGY REPORT ---
EXAMINATION: XR FINGER, LEFT CLINICAL INFORMATION: Pain COMPARISON: None TECHNIQUE: Three views of the left 5th finger. FINDINGS: No acute fracture or dislocation. Degenerative changes of the DIP joint with narrowing of the joint space and irregularity of the articular surfaces of the adjacent bones noted. No lytic or sclerotic bony lesion. The soft tissue is unremarkable. IMPRESSION: Degenerative changes of the DIP joints.
--- NOTE | 2017-04-24 21:28 | ED UPPER/LOWER EXTREMITY COMPL ---
History of Present Illness General Chief Complaint: Hand or Wrist Injury Stated Complaint: " ?LT PINKY INJURY" Source: patient, family Exam Limitations: language barrier Vital Signs & Intake/Output Vital Signs & Intake/Output Vital Signs Date Time Temp Pulse Resp B/P B/P Pulse O2 O2 Flow FiO2 Mean Ox Delivery Rate 04/24 2014 Room Air 04/24 2001 97.0 77 20 144/98 99 Allergies Coded Allergies: Opioids - Morphine Analogues (BECOMES SO LETHARGIC PEOPLE THINK SHE HAS OVERDOSED MEDS 03/31/17) celecoxib (From CELEBREX) (UNKNOWN 03/31/17) cyclobenzaprine (UNKNOWN 03/31/17) Reconcile Medications Pramipexole Di-HCl (Pramipexole Dihydrochloride) 1.5 MG TABLET 1 TAB PO TID PARKINSONS (Reported) Selegiline HCl 5 MG CAPSULE 1 CAP PO BID PARKINSONS (Reported) Triage Note: PER PT L 5TH DIGIT PAIN Triage Nurses Notes Reviewed? yes HPI: 47F WAS PLAYING BASKETBALL WHEN THE BALL HIT HER LEFT FIFTH FINGER AND NOW IT HURTS. FINGER SLIGHTLY SWOLLEN, MOVEMENT LIMITED BY PAIN. NO BLEEDING OR EVIDENCE OF TRAUMA. Past History Travel History Traveled to [place] past 21 day No Medical History Any Pertinent Medical History? see below for history Neurological: Parkinson's disease EENT: NONE Cardiovascular: HX. BRADYCARDIA HX. 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 MOTHER (HTN, DM, [place].). SISTER (Two sisters have Parkinson's disease.). Siblings (DM and HTN.). Hx Contributory? No Review of Systems Review of Systems Constitutional: Reports: no symptoms. EENTM: Reports: no symptoms. Respiratory: Reports: no symptoms. Cardiovascular: Reports: no symptoms. Gastrointestinal/Abdominal: Reports: no symptoms. Genitourinary: Reports: no symptoms. Musculoskeletal: Reports: see HPI. Skin: Reports: no symptoms. Neurological/Psychological: Reports: no symptoms. Hematologic/Endocrine: Reports: no symptoms. Immunological: Reports: no symptoms. All Other Systems: Reviewed and Negative Physical Exam Physical Exam General Appearance: well developed/nourished, mild distress Head: atraumatic Eyes: Bilateral: PERRL, EOMI. Ears, Nose, Throat: normal pharynx, normal ENT inspection, hearing grossly normal Neck: normal inspection, supple Cardiovascular/Respiratory: regular rate/rhythm Back: normal inspection Hand Left: LEFT FINGER SLIGHTLY SWOLLEN, NON-TENDER, NO ERYTHEMA OR DISCHARGE Skin: intact, normal color, warm/dry Lymphatic: no anterior cervical jordan Progress Differential Diagnosis: arterial insufficiency, cellulitis, CHF, compartment syndrome, contusion, dislocation, DVT, fracture, gout, septic arthritis, sprain, tendon injury Plan of Care: X-RAY LEFT HAND Diagnostic Imaging: Viewed by Me: Radiology Read. Discussed w/RAD: Radiology Read. Radiology Impression: PATIENT: AMIRA CHAPPELL PRESENT AGE: 47 PATIENT ACCOUNT NO: [id number] : 69 LOCATION: [facility] ORDERING PHYSICIAN: MARIE SÁNCHEZ MD SERVICE DATE: 04/24/17 EXAM TYPE : RAD - XRY-FINGERS, LEFT EXAMINATION: XR FINGER, LEFT CLINICAL INFORMATION: Pain COMPARISON: None TECHNIQUE: Three views of the left 5th finger. FINDINGS: No acute fracture or dislocation. Degenerative changes of the DIP joint with narrowing of the joint space and irregularity of the articular surfaces of the adjacent bones noted. No lytic or sclerotic bony lesion. The soft tissue is unremarkable. IMPRESSION: Degenerative changes of the DIP joints. DICTATED BY: KRYSTINA CARDOZA MD DATE/TIME DICTATED:04/24/172050 FIELD CHECKER:KIAH DATE/TIME TRANSCRIBED:04/24/172050 CONFIDENTIAL, DO NOT COPY WITHOUT APPROPRIATE AUTHORIZATION. <Electronically signed in Other Vendor System> SIGNED BY: KRYSTINA CARDOZA MD 04/24/172056 Departure Departure Time of Disposition: 2126 Disposition: HOME OR SELF CARE Condition: Stable Clinical Impression Primary Impression: Finger sprain Referrals: SHIMA ESQUEDA MD (PCP/Family) Additional Instructions: ICE YOUR FINGER AND REST IT. Departure Forms: Customer Survey General Discharge Information
== END 2017-04-24 21:31 ==
LOC: ERH 19:53
DX: S63.617A Unspecified sprain of left little finger, initial encounter (principal); W21.05XA Struck by basketball, initial encounter; Y93.67 Activity, basketball; Y92.9 Unspecified place or not applicable
CPT/HCPCS: 73140-LT

== ENCOUNTER 2017-12-14 19:59 | Emergency (ER) | payer OTHER ==
[~2017-12-14 19:59] MED LIST changes: +ALLERGY25 M1 PO; +HYDROXYZINE HCL50 M1 PO; +TRIAMCINOLONE A15 G3 TOP
[2017-12-14 20:18] VITALS: BP 130/84
== END 2017-12-14 22:15 | disposition admitted as inpatient to this hospital (09) ==
LOC: ERH 19:59
DX: R50.9 Fever, unspecified (principal)
CPT/HCPCS: 87804; 87804-59; 99281

== ENCOUNTER 2017-12-16 17:54 | Emergency (ER) | payer OTHER ==
[~2017-12-16] VITALS: Ht 157.5 cm; Wt 72.6 kg
[2017-12-16 17:57] VITALS: BP 157/91
== END 2017-12-16 19:02 | disposition admitted as inpatient to this hospital (09) ==
LOC: ERH 17:54
DX: R25.2 Cramp and spasm (principal)

== ENCOUNTER 2017-12-28 16:29 | Emergency (ER) | payer OTHER | END 2017-12-28 16:42 | disposition admitted as inpatient to this hospital (09) | LOC: ERH 16:29 | DX: S01.91XA Laceration without foreign body of unspecified part of head, initial encounter (principal) ==

== ENCOUNTER 2018-01-30 22:28 | Emergency (ER) | payer OTHER ==
--- NOTE | 2018-01-30 22:32 | ED UPPER/LOWER EXTREMITY COMPL ---
History of Present Illness General Chief Complaint: Skin Rash/ Abcess Stated Complaint: BIBA BILATERAL LEG RASH Source: patient Exam Limitations: no limitations Vital Signs & Intake/Output Vital Signs & Intake/Output Vital Signs Date Time Temp Pulse Resp B/P B/P Pulse O2 O2 Flow FiO2 Mean Ox Delivery Rate 01/31 2236 Room Air 01/31 2236 98.3 75 20 134/92 98 Room Air Allergies Coded Allergies: Opioids - Morphine Analogues (BECOMES SO LETHARGIC PEOPLE THINK SHE HAS OVERDOSED MEDS 12/16/17) celecoxib (From CELEBREX) (UNKNOWN 12/16/17) cyclobenzaprine (UNKNOWN 12/16/17) Reconcile Medications Hydroxyzine Hydrochloride (Atarax) 50 MG TAB 1 TAB PO TID PRN ITCHING Pramipexole Di-HCl (Pramipexole Dihydrochloride) 1.5 MG TABLET 1 TAB PO TID PARKINSONS (Reported) Triamcinolone Acetonide 0.1 % OINT...G. 1 PARTHA TOP BID DERMATITIS apply to affected area(s) Triage Nurses Notes Reviewed? yes Onset: Abrupt Duration: minute(s): Timing: single episode today Severity: mild Pain/Injury Location: Bilateral: Leg. Method of Injury: unknown No Modifying Factors: none Associated Symptoms: ITCHING, REDNESS ON INNER THIGHS HPI: 47 YO woman presents with itchy red raised rash for the past 30 minutes which began while playing [employer] bingo. She is not certain of the etiology.She notes no dyspnea, chest pain, fever, chills. She did not ingest anything unusual. She is otherwise well. Past History Travel History Traveled to [place] past 21 day No Medical History Any Pertinent Medical History? see below for history Neurological: Parkinson's disease EENT: NONE Cardiovascular: HX. BRADYCARDIA HX. 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 MOTHER (HTN, [place], [place] SISTER (Two sisters have Parkinson's disease.). Siblings (DM and HTN.). Hx Contributory? No Review of Systems Review of Systems Constitutional: Reports: no symptoms. EENTM: Reports: no symptoms. Respiratory: Reports: no symptoms. Cardiovascular: Reports: no symptoms. Gastrointestinal/Abdominal: Reports: no symptoms. Genitourinary: Reports: no symptoms. Musculoskeletal: Reports: no symptoms. Skin: Reports: no symptoms. Neurological/Psychological: Reports: no symptoms. Hematologic/Endocrine: Reports: no symptoms. Immunological: Reports: no symptoms. All Other Systems: Reviewed and Negative Physical Exam Physical Exam General Appearance: well developed/nourished, mild distress Head: atraumatic Eyes: Bilateral: normal appearance. Ears, Nose, Throat: normal pharynx, normal ENT inspection, hearing grossly normal Neck: normal inspection, supple Cardiovascular/Respiratory: regular rate/rhythm Back: normal inspection Skin: intact, normal color, warm/dry Lymphatic: no anterior cervical jordan Comments: bilateral inner thighs with urticaria. no sign of infection. Progress Differential Diagnosis: urticaria vs contact dermatitis vs other. Plan of Care: Current Medications Sig/Lopez Start time Last Medication Dose Stop Time Status Admin Diphenhydramine HCl 50 MG ONCE ONE 01/30 2245 AC (Benadryl) 01/30 2246 Prednisone 30 MG ONCE ONE 01/30 2245 AC 01/30 2246 Departure Departure Disposition: HOME OR SELF CARE Condition: Stable Clinical Impression Primary Impression: Urticaria Referrals: Jose Alba MD (PCP/Family) Departure Forms: Customer Survey General Discharge Information Comments discussed at length with patient.... wrote for prednisone and benadryl... she declines these medications and prefers to go home.
[2018-01-30 22:36] VITALS: BP 134/92
== END 2018-01-30 22:47 ==
LOC: ERH 22:28
DX: L50.9 Urticaria, unspecified (principal)
CPT/HCPCS: J7512

== ENCOUNTER 2018-02-10 17:36 | Emergency (ER) | payer OTHER ==
--- NOTE | 2018-02-10 17:45 | ED UPPER/LOWER EXTREMITY COMPL ---
History of Present Illness General Chief Complaint: Lower Extremity Problems Stated Complaint: BIBA FOR R LEG PAIN, DUE TO RUNNING OUT OF MEDS Source: patient, old records, EMS Exam Limitations: poor historian Vital Signs & Intake/Output Vital Signs & Intake/Output Vital Signs Date Time Temp Pulse Resp B/P B/P Pulse O2 O2 Flow FiO2 Mean Ox Delivery Rate 02/10 1818 97.8 89 18 153/94 99 Room Air Allergies Coded Allergies: Opioids - Morphine Analogues (BECOMES SO LETHARGIC PEOPLE THINK SHE HAS OVERDOSED MEDS 12/16/17) celecoxib (From CELEBREX) (UNKNOWN 12/16/17) cyclobenzaprine (UNKNOWN 12/16/17) Triage Nurses Notes Reviewed? yes Onset: Gradual Duration: day(s): (3) Timing: recent history Severity: moderate Pain/Injury Location: Right: Leg. Method of Injury: unknown Modifying Factors: Improves With: immobilization. Worsens With: movement. HPI: Patient is a 48-year-old female with history of Parkinson's disease, diabetes, hypertension and hyperlipidemia presenting to the emergency department reporting that she ran out of her pramipexole 3 days ago, tried calling her primary care physician who was unable to fill the prescription for her. Patient reports that the medication helped her immensely and when she does not take it she gets very rigid. She came in to see if she can get a dose of her medication and potentially a refill prescription. Patient denies any falls or trauma. Denies any chest pain palpitations or shortness of breath. Abdominal pain. Denies any urinary symptoms. Denies numbness or tingling. (Kellie SANDERS,Miryam) Reconcile Medications Pramipexole Di-HCl (Pramipexole Dihydrochloride) 1.5 MG TABLET 1 TAB PO TID PARKINSONS (Reported) (Pita LEMUS,Tanner) Past History Travel History Traveled to [place] past 21 day No Medical History Any Pertinent Medical History? see below for history Neurological: Parkinson's disease EENT: NONE Cardiovascular: HX. BRADYCARDIA HX. 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 MOTHER (HTN, DM, [place].). SISTER (Two sisters have Parkinson's disease.). Siblings (DM and HTN.). Hx Contributory? No (Miryam Lopez) Review of Systems Review of Systems Constitutional: Reports: no symptoms. Comments Review of systems: See HPI, All other systems negative. Constitutional, no chills fever or weight loss HEENT: No visual changes no sore throat no congestion Cardiovascular: No chest pain ,palpitation , orthopnea or ankle swelling Skin, no jaundice no rashes Respiratory: No dyspnea cough sputum or hemoptysis GI: No nausea no vomiting : No dysuria No hematuria Muscle skeletal: Positive neck and back pain Neurologic: No numbness no confusion no headaches Psych: No stress anxiety or depression,. Heme/endocrine: No bruising no bleeding no polyuria or polydipsia Immunology: No splenectomy or history of AIDS (Miryam Lopez) Physical Exam Physical Exam General Appearance: alert, awake, appears uncomfortable Comments: Well-developed well-nourished person in no acute distress HEENT: Atraumatic, normocephalic Neck: Normal inspection Back: Nontender Respiratory: No respiratory distress. Extremity: No edema, no calf tenderness to palpation, normal and equal pulses. Rigidity noted in the upper and lower extremities bilaterally. No cogwheeling noted under tension. Medical Coding Auditor strength is equal and symmetric bilaterally. Neuro: Alert oriented x3, motor sensory normal Skin: No appreciable rash on exposed skin, skin is warm and dry. Psych: Flat affect, memory and judgment is normal. (Miryam Lopez) Progress Differential Diagnosis: contusion, dislocation, fracture, sprain, medication noncompliance, worsening parkinsonian Plan of Care: Current Medications Sig/Lopez Start time Last Medication Dose Stop Time Status Admin Pramipexole 1.5 MG ONCE ONE 02/10 1745 UNVr Dihydrochloride 02/10 1746 (Mirapex) Patient feeling much improved after dose of pramipexole. Sent over prescription for 10 days, this will give her enough time to call her primary care physician and get a permanent refill. Patient has a ride home. She came in by ambulance. (Miryam Lopez) Departure Departure Time of Disposition: 1901 Disposition: HOME OR SELF CARE Condition: Stable Clinical Impression Primary Impression: Medication refill Secondary Impressions: Parkinson disease Referrals: Jose lAba MD (PCP/Family) Additional Instructions: Follow-up with your primary care physician regarding prescription refill. Take medications as prescribed. Return for worsening symptoms or concerns. Departure Forms: Customer Survey General Discharge Information (Miryam Lopez) PA/OPERATOR ASSISTANT I CEMENTING Co-Sign Statement Statement: ED Attending supervision documentation- I saw and evaluated the patient. I have also reviewed all the pertinent lab results and diagnostic results. I agree with the findings and the plan of care as documented in the PA's/OPERATOR ASSISTANT I CEMENTING's documentation. x I have reviewed the ED Record and agree with the PA's/OPERATOR ASSISTANT I CEMENTING's documentation. [] Additions or exceptions (if any) to the PAs/OPERATOR ASSISTANT I CEMENTING's note and plan are summarized below: [] (Pita LEMUS,Tanner)
[2018-02-10 18:18] VITALS: BP 153/94
[2018-02-10] MEDS ORDERED: MIRAPEX0.75 MG PO (19:07)
== END 2018-02-10 19:14 ==
LOC: ERH 17:36
DX: G20 Parkinson's disease (principal); Z76.0 Encounter for issue of repeat prescription
CPT/HCPCS: 99281

== ENCOUNTER 2018-02-12 08:13 | Inpatient (IN) | payer OTHER ==
[~2018-02-12] VITALS: Ht 157.5 cm; Wt 67.7 kg
[~2018-02-12 08:13] MED LIST changes: +MIRAPEX0.75 MG PO
--- NOTE | 2018-02-12 08:40 | ED GENERAL ADULT ---
History of Present Illness General Chief Complaint: General Adult Stated Complaint: WESTON WEAKNESS Source: patient, old records, EMS Exam Limitations: no limitations Vital Signs & Intake/Output Vital Signs & Intake/Output Vital Signs Date Time Temp Pulse Resp B/P B/P Pulse O2 O2 Flow FiO2 Mean Ox Delivery Rate 02/12 1103 97.7 76 14 135/94 96 Room Air 02/12 0818 96.7 96 17 133/99 95 Room Air Allergies Coded Allergies: Opioids - Morphine Analogues (BECOMES SO LETHARGIC PEOPLE THINK SHE HAS OVERDOSED MEDS 12/16/17) celecoxib (From CELEBREX) (UNKNOWN 12/16/17) cyclobenzaprine (UNKNOWN 12/16/17) Reconcile Medications Hydroxyzine Hydrochloride (Atarax) 50 MG TAB 1 TAB PO TID PRN ITCHING Pramipexole Di-HCl (Pramipexole Dihydrochloride) 1.5 MG TABLET 1 TAB PO TID PARKINSONS (Reported) Pramipexole Di-HCl (Mirapex) 0.75 MG TABLET 2 TAB PO TID PARKINSON Triamcinolone Acetonide 0.1 % OINT...G. 1 PARTHA TOP BID DERMATITIS apply to affected area(s) Triage Note: 48 YO FEMALE WESTON FROM HOME FOR GENERALIZED WEKANESS. STATES SHE WOKE UP THIS AM AND WAS UNABLE TO AMBULATE D/T WEAKNESS IN BIALTERAL LEGS, ALSO C/O WEKANESS IN BILATERAL ARMS. PT HX OF MS AND PARKINSONS, STATES SHE HAS BEEN TAKING HER MEDICATIONS PERSCRIBED. PT A&O X3. DENIES ANY PAIN. Triage Nurses Notes Reviewed? yes HPI: Patient woke up this morning and both her legs felt weak. Patient had run out of her parkinsonian medications. He refilled 2 days ago however she states that she has not been to the pharmacy to pick them up. Patient slipped out of bed when she got up secondary to her leg weakness patient called 911 for lift assist. Patient did not want to come to the emergency department but she states that EMS told that she had come. Patient states that her cousin is picking up her medications from the pharmacy now and she knows that is all she needs. Patient denies any injury from the fall. Past History Travel History Traveled to [place] past 21 day No Medical History Any Pertinent Medical History? see below for history Neurological: Parkinson's disease EENT: NONE Cardiovascular: HX. BRADYCARDIA HX. 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 MOTHER (HTN, [place], [place].). SISTER (Two sisters have Parkinson's disease.). Siblings (DM and HTN.). Hx Contributory? No Review of Systems Review of Systems Constitutional: Reports: see HPI, weakness. Respiratory: Reports: no symptoms. Cardiovascular: Reports: no symptoms. GI: Reports: no symptoms. Musculoskeletal: Reports: no symptoms. Neurological/Psychological: Reports: see HPI. Immunologic/Allergic: Reports: no symptoms. Physical Exam Physical Exam General Appearance: well developed/nourished, alert, awake, mild distress Head: atraumatic, normal appearance Eyes: Bilateral: PERRL, EOMI. Ears, Nose, Throat: normal pharynx, normal ENT inspection, hearing grossly normal Respiratory: normal breath sounds, chest non-tender, no respiratory distress, lungs clear Cardiovascular: regular rate/rhythm, normal peripheral pulses Neurologic/Psych: no motor/sensory deficits, awake, alert, oriented x 3, normal mood/affect Skin: intact, normal color, warm/dry Core Measures ACS in differential dx? No CVA/TIA Diagnosis: No Sepsis Present: No Sepsis Focused Exam Completed? No Progress Differential Diagnoses I considered the following diagnoses in my evaluation of the patient: [ PARKINSONS, hyperglycemia, DKA, hyperosmolar nonketotic] Plan of Care: Orders Procedure Date/time Status Regular Diet 02/12 D Active Regular Diet 02/12 B Complete ED Holding Orders 02/12 1139 Active Admit to inpatient 02/12 1139 Active Vital Signs 02/12 113 Active Code Status 02/12 113 Active URINALYSIS 02/12 0925 Complete COMPREHENSIVE METABOLIC PANEL 02/12 0925 Complete CBC WITHOUT DIFFERENTIAL 02/12 0925 Complete ACETONE 02/12 0925 Complete Current Medications Sig/Lopez Start time Last Medication Dose Stop Time Status Admin Insulin Detemir 8 UNITS BID 02/12 1055 UNVr 02/12 (Levemir) 1110 Laboratory Tests 02/12/18 1100: Urinalysis LIGHT H, Urine Color YEL, Urine Clarity HAZY H, Urine pH 5.5, Ur Specific [place] >= 1.030, Urine Protein NEG, Urine Ketones 15 H, Urine Nitrite NEG, Urine Bilirubin NEG, Urine Urobilinogen 0.2, Ur Leukocyte Esterase NEG, Ur Microscopic SEDIMENT EXAMINED, Urine WBC 3-5 H, Ur Epithelial Cells MOD H, Urine Bacteria MOD H, Urine Mucus FEW, Micro UA Comment BUDDING YEAST H, Urine Hemoglobin NEG, Urine Glucose >=1000 H 02/12/18 0932: Anion Gap 13, Estimated GFR > 60, BUN/Creatinine Ratio 26.0 H, Glucose 443 H, Calcium 9.0, Total Bilirubin 0.9, AST 95 H, ALT 145 H, Alkaline Phosphatase 123, Total Protein 8.1, Albumin 4.2, Globulin 3.9, Albumin/Globulin Ratio 1.1, CBC w Diff NO MAN DIFF REQ, RBC 4.64, MCV 80.9 L, MCH 27.0, MCHC 33.3, RDW 15.0 H, MPV 11.4 H, Gran % 60.8, Lymphocytes % 32.9, Monocytes % 5.7, Eosinophils % 0.3, Basophils % 0.3, Absolute Granulocytes 4.2, Absolute Lymphocytes 2.3, Absolute Monocytes 0.4, Absolute Eosinophils 0, Absolute Basophils 0, Acetone Level NEGATIVE Initial ED EKG: none Comments: Patient fingerstick was 349. Patient states that she is prediabetic. Patient is much weaker than her baseline. Patient is well-known to us here in the emergency department and the patient appeared more lethargic and weak than normal. At this point the patient would benefit from staying in the hospital for treatment for hyperglycemia but she should have a physical therapy consultation as well. Discussed with Dr. Shields, patient is to be started on Levaquin here 8 units subcutaneous twice a day and then a sliding scale insulin. Departure Departure Disposition: STILL A PATIENT Condition: Stable Clinical Impression Primary Impression: Hyperglycemia Secondary Impressions: Parkinsons disease Referrals: Jose Alba MD (PCP/Family) Additional Instructions: REUTRN NEEDED Departure Forms: Customer Survey General Discharge Information Admission Note Spoke With: Neymar LEMUS,Sarah Documentation of Exam: Documentation of any treatments & extenuating circumstances including Concerns Regarding Discharge (functional status, medication knowledge or non-compliance, living conditions, etc.) that warrant an admission rather than observation: [IV fluids, subcutaneous insulin, endocrinology consultation, physical therapy consultation, continue her parkinsonian medications and shortness patient will be able to go home upon discharge or if she would benefit from short-term rehabilitation.] Critical Care Note Critical Care Note Critical Care Time: non-applicable
[2018-02-12 09:50] LABS: ABSOLUTE BASOPHIL COUNT 0 /CUMM (0.0-0.2); ABSOLUTE EOSINOPHIL COUNT 0 /CUMM (0.0-0.7); ABSOLUTE GRANULOCYTE CT 4.2 /CUMM (1.4-6.5); ABSOLUTE LYMPH COUNT 2.3 /CUMM (1.2-3.4); ABSOLUTE MONOCYTE COUNT 0.4 /CUMM (0.10-0.60); BASOPHIL % 0.3 % (0.0-2.0); EOSINOPHIL % 0.3 % (0-5); GRANULOCYTE % 60.8 % (42.2-75.2); HEMATOCRIT 37.5 % (37-47); MEAN CORPUSCULAR HGB CONC 33.3 G/DL (33.0-37.0); MEAN CORPUSCULAR VOLUME 80.9 FL (81.0-99.0); MEAN PLATELET VOLUME 11.4 FL (7.4-10.4); PLATELET COUNT 139 /CUMM (130-400); RED BLOOD CELL CT 4.64 /CUMM (4.20-5.40); WHITE BLOOD CELL COUNT 6.9 /CUMM (4.8-10.8)
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
[2018-02-12 14:46] VITALS: BP 128/76
[2018-02-12 22:58] VITALS: BP 90/60
[2018-02-13 00:43] VITALS: BP 110/70
[2018-02-13 06:57] VITALS: BP 98/64
--- NOTE | 2018-02-13 07:33 | PN- Housestaff ---
Subjective Follow-up For: New onset diabetes mellitus Parkinsonism Subjective: Patient visited today, was lying in bed comfortably in no acute distress, was alert and oriented. No fever or chills, no shortness of breathing, no chest pain, no other events. Blood sugars were in 400s, we will start oral medication while monitoring for signs of hypoglycemmia Review of Systems Constitutional: Reports: see HPI. Objective Last 24 Hrs of Vital Signs/I&O Vital Signs Date Time Temp Pulse Resp B/P B/P Pulse O2 O2 Flow FiO2 Mean Ox Delivery Rate 02/13 0657 97.9 70 16 98/64 96 Room Air 02/13 0043 97.6 72 18 110/70 95 Room Air 02/12 2258 98.1 65 20 90/60 97 Room Air 02/12 1715 70 138/74 02/12 1446 98.0 72 20 128/76 98 Intake & Output 02/13 1600 02/13 0800 02/13 0000 Intake Total 900 500 Output Total 350 Balance 900 150 Intake, IV 600 300 Intake, Oral 300 200 Output, Urine 350 Patient 148 lb Weight Weight Bed scale Measurement Method Physical Exam General Appearance: Alert, Oriented X3, Cooperative, No Acute Distress Skin: No Significant Lesion Skin Temp/Moisture Exam: Warm/Dry HEENT: Atraumatic, EOMI Neck: No JVD Cardiovascular: Normal S1, Normal S2 Lungs: Normal Air Movement Abdomen: Soft, No Tenderness Neurological: Improved LE motor to 4/5 Extremities: No Edema Current Medications: Current Medications Sig/Lopez Start time Last Medication Dose Route Stop Time Status Admin Diclofenac Sodium 1 PARTHA 4 TIMES/DAY PRN 02/12 1945 DC TOP Enoxaparin Sodium 0 .STK-MED ONE 02/12 1411 DC SC Enoxaparin Sodium 40 MG DAILY 02/12 1334 02/13 AR 0949 Insulin Aspart 0 TIDAC 02/12 1700 AC 02/13 SC 0949 Insulin Aspart 4 UNITS ONCE ONE 02/12 1415 DC 02/12 AR 02/12 1416 1410 Insulin Detemir 8 UNITS BID 02/12 1055 AC 02/13 SC 0948 Losartan Potassium 25 MG DAILY 02/12 1445 AC 02/12 PO 1715 Metformin HCl 850 MG 0800,1700 02/13 1700 AC PO Pioglitazone HCl 30 MG DAILY 02/13 1300 AC PO Pramipexole 1.5 MG TID 02/12 1422 AC 02/13 Dihydrochloride PO 0950 Sodium Chloride 1,000 ML Q13H 02/12 1430 DC 02/12 IV 02/13 0671 0811 Last 24 Hrs of Lab/Rico Results Last 24 Hrs of Labs/Mics: Laboratory Tests 02/13/18 0805: Anion Gap 13, Estimated GFR > 60, BUN/Creatinine Ratio 28.0 H, Total Bilirubin 1.0, Direct Bilirubin 0.4, AST 99 H, ALT 119 H, Alkaline Phosphatase 102, Total Protein 7.3, Albumin 3.6, CBC w Diff NO MAN DIFF REQ, RBC 4.41, MCV 81.7, MCH 26.9 L, MCHC 33.0, RDW 15.6 H, MPV 11.1 H, Gran % 49.2, Lymphocytes % 44.5, Monocytes % 5.5, Eosinophils % 0.5, Basophils % 0.3, Absolute Granulocytes 3.7, Absolute Lymphocytes 3.3, Absolute Monocytes 0.4, Absolute Eosinophils 0, Absolute Basophils 0 Assessment/Plan Assessment: 48-year-old woman with past medical history significant for Parkinson's disease that was diagnosed over 20 years ago, depression/anxiety, history of prediabetes , history of untreated hepatitis, chronic anemia here for evaluation of her lateral lower extremity weakness. In ED was found to elevated diastolic blood pressure lab significant for hyperglycemia [443], negative acetone and normal anion gap, UA positive for ketones, mild transaminitis Assessment /Plan: Hyperglycemia? New onset diabetes Mid to general medicine floor, vitals per protocol Accu-Cheks Endocrine consulted by ED physician, was started on the levemir 8 units twice a day with insulin sliding scale Follow-up hemoglobin A1c and dara Diabetic diet started on metformin and actos Weakness ? Secondary to parkinson' Continue pramiprexole Neuro consult in the a.m. [patient sees Dr. Velasquez as at [place]] PT to evaluate and treat Follow-up CPK Gentle IV fluids at 75 for one bag Hypertension Diastolic blood pressure consistently 90s in the ED Will start losartan 25 mg daily Depression/anxiety Psych consult in the a.m. Patient states that she is not on any medications currently Transaminitis in the setting of untreated hepatitis C We'll continue to trend No clinical indication of active infection DVT prophylaxis subcutaneous Lovenox Patient is a full code Problem List: 1. Hyperglycemia 2. Parkinsons disease Pain Ratin Pain Location: none Pain Goal: Pain 4 or less Pain Plan: contiue current plan Tomorrow's Labs & Rationales: NICOLE GUTIERREZP
[2018-02-13 09:18] LABS: ABSOLUTE BASOPHIL COUNT 0 /CUMM (0.0-0.2); ABSOLUTE EOSINOPHIL COUNT 0 /CUMM (0.0-0.7); ABSOLUTE GRANULOCYTE CT 3.7 /CUMM (1.4-6.5); ABSOLUTE LYMPH COUNT 3.3 /CUMM (1.2-3.4); ABSOLUTE MONOCYTE COUNT 0.4 /CUMM (0.10-0.60); BASOPHIL % 0.3 % (0.0-2.0); EOSINOPHIL % 0.5 % (0-5); GRANULOCYTE % 49.2 % (42.2-75.2); MEAN CORPUSCULAR HGB 26.9 PG (27.0-31.0); MEAN CORPUSCULAR VOLUME 81.7 FL (81.0-99.0); MEAN PLATELET VOLUME 11.1 FL (7.4-10.4); PLATELET COUNT 138 /CUMM (130-400); RBC DISTRIBUTION WIDTH 15.6 % (11.5-14.5); RED BLOOD CELL CT 4.41 /CUMM (4.20-5.40); WHITE BLOOD CELL COUNT 7.5 /CUMM (4.8-10.8)
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
--- NOTE | 2018-02-13 12:51 | PN- Att Addend ---
Attending Addendum Attending Brief Note Patient seen and examined, overall feeling much better. Blood sugars are acceptable. Vital Signs Date Time Temp Pulse Resp B/P B/P Pulse O2 O2 Flow FiO2 Mean Ox Delivery Rate 02/13 0657 97.9 70 16 98/64 96 Room Air 02/13 0043 97.6 72 18 110/70 95 Room Air 02/12 2258 98.1 65 20 90/60 97 Room Air 02/12 1715 70 138/74 02/12 1446 98.0 72 20 128/76 98 02/12 1300 98.2 70 16 130/92 96 Room Air on exam; aox3, nad. cv; s1,s2, rrr resp; clear abd; soft, nt, bs+ ext; no edema. Laboratory Tests 02/13 0805 Chemistry Sodium (137 - 145 mmol/L) 138 Potassium (3.5 - 5.1 mmol/L) 3.9 Chloride (98 - 107 mmol/L) 100 Carbon Dioxide (22 - 30 mmol/L) 24 Anion Gap (5 - 16) 13 BUN (7 - 17 mg/dL) 14 Creatinine (0.5 - 1.0 mg/dL) 0.5 Estimated GFR (>60 ml/min) > 60 BUN/Creatinine Ratio (7 - 25 %) 28.0 H Total Bilirubin (0.2 - 1.3 mg/dL) 1.0 Direct Bilirubin (< 0.4 mg/dL) 0.4 AST (14 - 36 U/L) 99 H ALT (9 - 52 U/L) 119 H Alkaline Phosphatase (<127 U/L) 102 Total Protein (6.3 - 8.2 g/dL) 7.3 Albumin (3.5 - 5.0 g/dL) 3.6 Hematology CBC w Diff NO MAN DIFF REQ WBC (4.8 - 10.8 /CUMM) 7.5 RBC (4.20 - 5.40 /CUMM) 4.41 Hgb (12.0 - 16.0 G/DL) 11.9 L Hct (37 - 47 %) 36.0 L MCV (81.0 - 99.0 FL) 81.7 MCH (27.0 - 31.0 PG) 26.9 L MCHC (33.0 - 37.0 G/DL) 33.0 RDW (11.5 - 14.5 %) 15.6 H Plt Count (130 - 400 /CUMM) 138 MPV (7.4 - 10.4 FL) 11.1 H Gran % (42.2 - 75.2 %) 49.2 Lymphocytes % (20.5 - 51.1 %) 44.5 Monocytes % (1.7 - 9.3 %) 5.5 Eosinophils % (0 - 5 %) 0.5 Basophils % (0.0 - 2.0 %) 0.3 Absolute Granulocytes (1.4 - 6.5 /CUMM) 3.7 Absolute Lymphocytes (1.2 - 3.4 /CUMM) 3.3 Absolute Monocytes (0.10 - 0.60 /CUMM) 0.4 Absolute Eosinophils (0.0 - 0.7 /CUMM) 0 Absolute Basophils (0.0 - 0.2 /CUMM) 0 A/P; 48 y/o F with pmh sig for Parkinson's disease that was diagnosed over 20 years ago, currently taking pramipexole, depression/anxiety, history of prediabetes, history of untreated hepatitis, chronic anemia admitted with generalized weakness, hyperglycemia, dehydration, uncontrolled diabetes, diastolic hypertension. Blood sugars are acceptable. Appreciate endocrinology input. Please follow recommendations. We'll continue to monitor blood sugars. Neurology consult is pending. Patient has been continued on pramipexole. Blood pressure was slightly better after losartan was added. DVT prophylaxis: Lovenox and patient will need to be evaluated by physical therapy.
[2018-02-13 14:39] VITALS: BP 104/72
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
[2018-02-13 22:45] VITALS: BP 116/70
[2018-02-14 06:36] VITALS: BP 106/54
--- NOTE | 2018-02-14 08:09 | PN- Diabetes ---
Assessment/Plan Diabetes Assessment: The patient feels a little bit better. She is presently on Levemir 8 units twice a day as well as sliding scale NovoLog. Yesterday we also began Metformin 850 mg twice a day and pioglitazone 30 mg daily. It takes 2-4 weeks to get the effects of pioglitazone on her diabetes control. Patient's fingerstick blood sugar this morning is 217. Plan: Suggest continue the present regimen today. The patient needs to be educated on a diabetic diet and also how to take insulin and how to measure her own blood sugar.. When ready for discharge we may be able to send her home on one dose of Levemir per day as well as Metformin and pioglitazone. Subjective Subjective: Feels improved Review of Systems Constitutional: Denies: chills, fever. Cardiovascular: Denies: chest pain. Respiratory: Denies: cough, short of breath. Gastrointestinal: Denies: abdominal pain, nausea, vomiting. Skin: Reports: no symptoms. Objective Last 24 Hrs of Vital Signs/I&O Vital Signs Date Time Temp Pulse Resp B/P B/P Pulse O2 O2 Flow FiO2 Mean Ox Delivery Rate 02/14 0741 97.3 73 18 106/54 02/14 0636 97.3 73 18 10654 96 Room Air 02/13 2245 98.6 69 18 116/70 92 Room Air 02/13 1439 98.4 75 20 104/72 96 Intake & Output 02/14 1600 02/14 0800 02/14 0000 Intake Total 200 300 Output Total Balance 200 300 Intake, Oral 200 300 Patient 151 lb Weight Vital Signs Date Time Temp Pulse Resp B/P B/P Pulse O2 O2 Flow FiO2 Mean Ox Delivery Rate 02/14 0741 97.3 73 18 106/54 02/14 0636 97.3 73 18 10654 96 Room Air 02/13 2245 98.6 69 18 116/70 92 Room Air 02/13 1439 98.4 75 20 104/72 96 Intake & Output 02/14 1600 02/14 0802/14 0000 Intake Total 200 300 Output Total Balance 200 300 Intake, Oral 200 300 Patient 151 lb Weight Physical Exam General Appearance: alert, awake, comfortable Head: normal appearance Neck: normal inspection Respiratory: normal breath sounds Cardiovascular: regular rate/rhythm Current Medications: Current Medications Sig/Lopez Start time Last Medication Dose Route Stop Time Status Admin Enoxaparin Sodium 40 MG DAILY 02/12 1334 AC 02/14 SC 0742 Glycerin 2 SPRAY Q2P PRN 02/13 1930 AC 02/13 PO 2326 Insulin Aspart 0 TIDAC 02/12 1700 AC 02/14 SC 0748 Insulin Detemir 8 UNITS BID 02/12 1055 AC 02/14 SC 0747 Losartan Potassium 25 MG DAILY 02/12 1445 AC 02/12 PO 1715 Metformin HCl 850 MG 0800,1700 02/13 1700 AC 02/14 PO 0741 Pioglitazone HCl 30 MG DAILY 02/13 1300 AC 02/14 PO 0741 Pramipexole 1.5 MG TID 02/12 1422 AC 02/14 Dihydrochloride PO 0742 Findings Pertinent Lab/Rico Results: Laboratory Tests 02/14 02/13 0600 0805 Chemistry Sodium (137 - 145 mmol/L) 138 Potassium (3.5 - 5.1 mmol/L) 3.9 Chloride (98 - 107 mmol/L) 100 Carbon Dioxide (22 - 30 mmol/L) 24 Anion Gap (5 - 16) 13 BUN (7 - 17 mg/dL) 14 Creatinine (0.5 - 1.0 mg/dL) 0.5 Estimated GFR (>60 ml/min) > 60 BUN/Creatinine Ratio (7 - 25 %) 28.0 H Total Bilirubin (0.2 - 1.3 mg/dL) 1.0 Direct Bilirubin (< 0.4 mg/dL) 0.4 AST (14 - 36 U/L) 99 H ALT (9 - 52 U/L) 119 H Alkaline Phosphatase (<127 U/L) 102 Total Protein (6.3 - 8.2 g/dL) 7.3 Albumin (3.5 - 5.0 g/dL) 3.6 Hematology CBC w Diff NO MAN DIFF REQ WBC (4.8 - 10.8 /CUMM) 7.5 RBC (4.20 - 5.40 /CUMM) 4.41 Hgb (12.0 - 16.0 G/DL) 11.9 L Hct (37 - 47 %) 36.0 L MCV (81.0 - 99.0 FL) 81.7 MCH (27.0 - 31.0 PG) 26.9 L MCHC (33.0 - 37.0 G/DL) 33.0 RDW (11.5 - 14.5 %) 15.6 H Plt Count (130 - 400 /CUMM) 138 MPV (7.4 - 10.4 FL) 11.1 H Gran % (42.2 - 75.2 %) 49.2 Lymphocytes % (20.5 - 51.1 %) 44.5 Monocytes % (1.7 - 9.3 %) 5.5 Eosinophils % (0 - 5 %) 0.5 Basophils % (0.0 - 2.0 %) 0.3 Absolute Granulocytes (1.4 - 6.5 /CUMM) 3.7 Absolute Lymphocytes (1.2 - 3.4 /CUMM) 3.3 Absolute Monocytes (0.10 - 0.60 /CUMM) 0.4 Absolute Eosinophils (0.0 - 0.7 /CUMM) 0 Absolute Basophils (0.0 - 0.2 /CUMM) 0 Immunology JORGE Antibody Pending 02/12 02/12 1100 0932 Chemistry Sodium (137 - 145 mmol/L) 137 Potassium (3.5 - 5.1 mmol/L) 4.2 Chloride (98 - 107 mmol/L) 99 Carbon Dioxide (22 - 30 mmol/L) 26 Anion Gap (5 - 16) 13 BUN (7 - 17 mg/dL) 13 Creatinine (0.5 - 1.0 mg/dL) 0.5 Estimated GFR (>60 ml/min) > 60 BUN/Creatinine Ratio (7 - 25 %) 26.0 H Glucose (65 - 99 mg/dL) 443 H Hemoglobin A1c (4.2 - 5.8 %) Pending Calcium (8.4 - 10.2 mg/dL) 9.0 Total Bilirubin (0.2 - 1.3 mg/dL) 0.9 AST (14 - 36 U/L) 95 H ALT (9 - 52 U/L) 145 H Alkaline Phosphatase (<127 U/L) 123 Creatine Kinase (30 - 135 U/L) 168 H Total Protein (6.3 - 8.2 g/dL) 8.1 Albumin (3.5 - 5.0 g/dL) 4.2 Globulin (1.9 - 4.2 gm/dL) 3.9 Albumin/Globulin Ratio (1.1 - 2.2 %) 1.1 Hematology CBC w Diff NO MAN DIFF REQ WBC (4.8 - 10.8 /CUMM) 6.9 RBC (4.20 - 5.40 /CUMM) 4.64 Hgb (12.0 - 16.0 G/DL) 12.5 Hct (37 - 47 %) 37.5 MCV (81.0 - 99.0 FL) 80.9 L MCH (27.0 - 31.0 PG) 27.0 MCHC (33.0 - 37.0 G/DL) 33.3 RDW (11.5 - 14.5 %) 15.0 H Plt Count (130 - 400 /CUMM) 139 MPV (7.4 - 10.4 FL) 11.4 H Gran % (42.2 - 75.2 %) 60.8 Lymphocytes % (20.5 - 51.1 %) 32.9 Monocytes % (1.7 - 9.3 %) 5.7 Eosinophils % (0 - 5 %) 0.3 Basophils % (0.0 - 2.0 %) 0.3 Absolute Granulocytes (1.4 - 6.5 /CUMM) 4.2 Absolute Lymphocytes (1.2 - 3.4 /CUMM) 2.3 Absolute Monocytes (0.10 - 0.60 /CUMM) 0.4 Absolute Eosinophils (0.0 - 0.7 /CUMM) 0 Absolute Basophils (0.0 - 0.2 /CUMM) 0 Toxicology Acetone Level (NEGATIVE) NEGATIVE Urines Urinalysis LIGHT H Urine Color (YEL,AMB,STR) YEL Urine Clarity (CLEAR) HAZY H Urine pH (5.0 - 8.0) 5.5 Ur Specific [place] (1.001 - 1.035) >= 1.030 Urine Protein (NEG,<30 MG/DL) NEG Urine Ketones (NEG) 15 H Urine Nitrite (NEG) NEG Urine Bilirubin (NEG) NEG Urine Urobilinogen (0.1 - 1.0 EU/dl) 0.2 Ur Leukocyte Esterase (NEG) NEG Ur Microscopic SEDIMENT EXAMINED Urine WBC (0 - 2 /HPF) 3-5 H Ur Epithelial Cells (NONE,FEW) MOD H Urine Bacteria (NEG/NONE) MOD H Urine Mucus (FEW,NONE) FEW Micro UA Comment BUDDING YEAST H Urine Hemoglobin (NEG) NEG Urine Glucose (N MG/DL) >=1000 H
--- NOTE | 2018-02-14 08:14 | PN- Housestaff ---
Sylvain Eid MD,Ami 02/14/18 0814: Subjective Follow-up For: New onset diabetes mellitus Parkinsonism Subjective: Patient visited today, was lying in bed comfortably in no acute distress, was alert and oriented. Sitter at the bedside since she was agitated overnight and to cough and took off her IV line. No fever or chills, no shortness of breathing, no chest pain, no other events. Started on oral medication, planned to do instruction for insulin administration. Review of Systems Constitutional: Reports: see HPI. Objective Last 24 Hrs of Vital Signs/I&O Vital Signs Date Time Temp Pulse Resp B/P B/P Pulse O2 O2 Flow FiO2 Mean Ox Delivery Rate 02/14 1422 97.5 74 18 110/70 98 Room Air 02/14 0741 97.3 73 18 106/54 02/14 0636 97.3 73 18 106/54 96 Room Air 02/13 2245 98.6 69 18 116/70 92 Room Air Intake & Output 02/14 1600 02/14 0800 02/14 0000 Intake Total 800 200 300 Output Total 400 Balance 400 200 300 Intake, Oral 800 200 300 Number 1 Bowel Movements Output, Urine 400 Patient 151 lb Weight Physical Exam General Appearance: Alert, Oriented X3, Cooperative, No Acute Distress Skin: No Significant Lesion Skin Temp/Moisture Exam: Warm/Dry Sepsis Skin Exam (color): Normal for Ethnicity HEENT: Atraumatic, EOMI Cardiovascular: Normal S1, Normal S2 Lungs: Clear to Auscultation, Normal Air Movement Abdomen: Soft, No Tenderness Neurological: Normal Speech Extremities: No Edema Current Medications: Current Medications Sig/Lopez Start time Last Medication Dose Route Stop Time Status Admin Acetaminophen 650 MG ONCE ONE 02/14 1145 DC 02/14 PO 02/14 1146 1138 Enoxaparin Sodium 40 MG DAILY 02/12 1334 02/14 [place] 0742 Glycerin 2 SPRAY Q2P PRN 02/13 1930 AC 02/13 PO 2326 Insulin Aspart 0 TIDAC 02/12 1700 AC 02/14 SC 1138 Insulin Detemir 8 UNITS BID 02/12 1055 02/14 SC 0747 Losartan Potassium 25 MG DAILY 02/12 1445 AC 02/12 PO 1715 Metformin HCl 850 MG 0800,1700 02/13 1700 AC 02/14 PO 0741 Ondansetron HCl 4 MG ONCE ONE 02/14 1145 DC 02/14 PO 02/14 1146 1138 Pioglitazone HCl 30 MG DAILY 02/13 1300 AC 02/14 PO 0741 Pramipexole 1.5 MG TID 02/12 1422 AC 02/14 Dihydrochloride PO 1447 Last 24 Hrs of Lab/Rico Results Last 24 Hrs of Labs/Mics: Laboratory Tests 02/14/18 0723: Anion Gap 11, Estimated GFR > 60, BUN/Creatinine Ratio 34.0 H, Total Bilirubin 0.7, Direct Bilirubin 0.4, AST 108 H, ALT 127 H, Alkaline Phosphatase 102, Total Protein 7.4, Albumin 3.7, CBC w Diff NO MAN DIFF REQ, RBC 4.54, MCV 81.8, MCH 26.8 L, MCHC 32.7 L, RDW 15.4 H, MPV 11.0 H, Gran % 42.3, Lymphocytes % 50.6, Monocytes % 6.2, Eosinophils % 0.5, Basophils % 0.4, Absolute Granulocytes 2.7, Absolute Lymphocytes 3.3, Absolute Monocytes 0.4, Absolute Eosinophils 0, Absolute Basophils 0 02/14/18 0600: JORGE Antibody Pending Assessment/Plan Assessment: 48-year-old woman with past medical history significant for Parkinson's disease that was diagnosed over 20 years ago, depression/anxiety, history of prediabetes , history of untreated hepatitis, chronic anemia here for evaluation of her lateral lower extremity weakness. In ED was found to elevated diastolic blood pressure lab significant for hyperglycemia [443], negative acetone and normal anion gap, UA positive for ketones, mild transaminitis Assessment /Plan: Hyperglycemia? New onset diabetes Mid to general medicine floor, vitals per protocol Accu-Cheks Endocrine consulted by ED physician, started on metformin and actos - insuline levemir and sliding scale - instruction for insuline injectin Weakness could be related to Secondary to parkinson Neuro consult was placed Continued pramiprexole TID per neuro Hypertension Diastolic blood pressure consistently 90s in the ED Will start losartan 25 mg daily Depression/anxiety Psych consult in the a.m. Patient states that she is not on any medications currently Transaminitis in the setting of untreated hepatitis C We'll continue to trend No clinical indication of active infection DVT prophylaxis subcutaneous Lovenox Patient is a full code Problem List: 1. Hyperglycemia Pain Ratin Pain Location: None Pain Goal: Pain 4 or less Pain Plan: Continue current plan Tomorrow's Labs & Rationales: None Pratibha LEMUSPhoebe 02/14/18 1427: Attending MD Review Statement Attending Statement Attending MD Statement: examined this patient, discuss w/resident/PA/WINE CONSULTANT, agreed w/resident/PA/WINE CONSULTANT, reviewed EMR data (avail), discussed with nursing, discussed with case mgmt, amended to note Attending Assessment/Plan: Patient seen and examined. Resting comfortably not in any acute distress. No issues overnight. No new complaints today. She was initially brought to the emergency room stating that she felt unwell. Random blood glucose levels were found to be in the 400s. Apparently this was the second occasion with a blood pressure in the range. She was admitted for further management. She has been followed by the endocrinology service and will be discharged home to oral agents as well as insulin. Patient is willing to follow-up with this plan. She will be educated today and again tomorrow morning on administering insulin and checking her blood glucose levels after which she may be discharged home. There was some concern regarding her Parkinson's medications. She had apparently run out of medications prior to her prescriptions being due. She did receive a prescription for a temporary fill according to the patient. Her prescription is now due at the pharmacy and she will be picking up at the time of discharge. We will call the pharmacy to confirm this. Patient has been instructed to call the hospital if she has any issues picking up her medication. She has been cleared by the physical therapy service for discharge home. Patient is in agreement with this plan. She will be discharged tomorrow after adequate insulin teaching has occured. she will follow-up with endocrinology service and her primary care provider as an outpatient.
[2018-02-14 09:10] LABS: ABSOLUTE BASOPHIL COUNT 0 /CUMM (0.0-0.2); ABSOLUTE EOSINOPHIL COUNT 0 /CUMM (0.0-0.7); ABSOLUTE GRANULOCYTE CT 2.7 /CUMM (1.4-6.5); ABSOLUTE LYMPH COUNT 3.3 /CUMM (1.2-3.4); ABSOLUTE MONOCYTE COUNT 0.4 /CUMM (0.10-0.60); BASOPHIL % 0.4 % (0.0-2.0); EOSINOPHIL % 0.5 % (0-5); GRANULOCYTE % 42.3 % (42.2-75.2); HEMATOCRIT 37.2 % (37-47); MEAN CORPUSCULAR HGB 26.8 PG (27.0-31.0); MEAN CORPUSCULAR HGB CONC 32.7 G/DL (33.0-37.0); MEAN CORPUSCULAR VOLUME 81.8 FL (81.0-99.0); PLATELET COUNT 138 /CUMM (130-400); RBC DISTRIBUTION WIDTH 15.4 % (11.5-14.5); RED BLOOD CELL CT 4.54 /CUMM (4.20-5.40); WHITE BLOOD CELL COUNT 6.5 /CUMM (4.8-10.8)
[2018-02-14 14:22] VITALS: BP 110/70
--- NOTE | 2018-02-14 18:18 | Cons- Psychiatry ---
Psychiatric Consult Date of Consult: 02/14/18 Reason for Consult: "depression, seen at [facility]" History of Present Illness: This is a 48 y.o. single HF BIBA from home 02/12/18 @ 0819 with a CC of bilateral LE weakness and inability to walk. She reports that her medication pamiprexole, for Parkinson's disease, had been stolen, and she was taking a reduced dose until it could be refilled. [place] moved to [place] from [place] in 2003. She is one of 14 children. She was diagnosed with Parkinson's disease at age 20. She has two sisters, who also have this diagnosis. The patient has a history of admission to inpatient psychiatry on 9 occasions since December 2003. Admissions were for suicidal ideation, homicidal ideation, suicide attempt and depression. Allergies: Coded Allergies: Opioids - Morphine Analogues (BECOMES SO LETHARGIC PEOPLE THINK SHE HAS OVERDOSED MEDS 12/16/17) celecoxib (From CELEBREX) (UNKNOWN 12/16/17) cyclobenzaprine (UNKNOWN 12/16/17) Current Medications: Current Medications Sig/Lopez Start time Last Medication Dose Route Stop Time Status Admin Acetaminophen 650 MG ONCE ONE 02/14 1145 DC 02/14 PO 02/14 1146 1138 Enoxaparin Sodium 40 MG DAILY 02/12 1334 AC 02/14 SC 0742 Glycerin 2 SPRAY Q2P PRN 02/13 1930 AC 02/13 PO 2326 Insulin Aspart 0 TIDAC 02/12 1700 AC 02/14 SC 1138 Insulin Detemir 8 UNITS BID 02/12 1055 AC 02/14 SC 0747 Losartan Potassium 25 MG DAILY 02/12 1445 AC 02/12 PO 1715 Metformin HCl 850 MG 0800,1700 02/13 1700 AC 02/14 PO 1704 Ondansetron HCl 4 MG ONCE ONE 02/14 1145 DC 02/14 PO 02/14 1146 1138 Patient Medication 1 ED ONE ONE 02/14 1715 DC Teaching ED 02/14 1716 Pioglitazone HCl 30 MG DAILY 02/13 1300 AC 02/14 PO 0741 Pramipexole 1.5 MG TID 02/12 1422 AC 02/14 Dihydrochloride PO 1447 Past History Past Medical History Neurological: Parkinson's disease EENT: NONE Cardiovascular: HX. BRADYCARDIA HX. 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[facility], attends social club at [facility] Physical Limitations (Interventions): difficulty with ambulation, sometimes has difficulty performing AdL's Psychiatric Treatment History Psych Treatment Psychiatric Treatment Yes Inpatient Treatment Yes Outpatient Treatment Yes Location of Treatment Unknown psychiatric clinic in [facility] Reason for Treatment SI, HI, suicide attempt, depression, adjustement disorder, personality disorder Dates of Treatment 2003 to the present Response to Treatment Mostly improved, but many refusals of psychotropic medication Diagnosis: Depression Risk Factors: access to lethal means, chronic/serious med cond., high anxiety/ distress, history of suicide atmpts, SA/MH hospitalized, poor impulse control, lives alone, limited support Substance Use/Abuse History Drug Use/Abuse Substances Used/Abused No (Denies) Substance Abuse Treatment Substance Abuse Treatment Past Substance Abuse [place] No Assessment/Plan Mental Status Orientation: Person, Place, Situation Affect: WNL Speech: Slurred (Lethargic) Neuro-vegetative: WNL Mental Status Exam: The patient is awake, drowsy-appearing with slow speech, oriented to person, place, day, date, month and year. She reports she sometimes sees a yellow light moving across her field of vision, and thinks it might be related to her high blood glucose, recently over 400. She denies auditory hallucinations and presents no laith delusions. She denies feelings of depression and anxiety, scaling both as 0/10; 10 being the worst. She denies hopelessness, helplessness, worthlessness and guilty feelings. She denies suicidal of homicidal ideation. She states that she has a nice male friend, who helps care for her. She reports that she could not tolerate mirtazapine 7.5 mg nightly, prescribed previously on inpatient psychiatry, "because it made me sleep for 7 days." Lab Results: Laboratory Tests 02/14 02/14 0723 0600 Chemistry Sodium (137 - 145 mmol/L) 137 Potassium (3.5 - 5.1 mmol/L) 4.3 Chloride (98 - 107 mmol/L) 99 Carbon Dioxide (22 - 30 mmol/L) 27 Anion Gap (5 - 16) 11 BUN (7 - 17 mg/dL) 17 Creatinine (0.5 - 1.0 mg/dL) 0.5 Estimated GFR (>60 ml/min) > 60 BUN/Creatinine Ratio (7 - 25 %) 34.0 H Total Bilirubin (0.2 - 1.3 mg/dL) 0.7 Direct Bilirubin (< 0.4 mg/dL) 0.4 AST (14 - 36 U/L) 108 H ALT (9 - 52 U/L) 127 H Alkaline Phosphatase (<127 U/L) 102 Total Protein (6.3 - 8.2 g/dL) 7.4 Albumin (3.5 - 5.0 g/dL) 3.7 Hematology CBC w Diff NO MAN DIFF REQ WBC (4.8 - 10.8 /CUMM) 6.5 RBC (4.20 - 5.40 /CUMM) 4.54 Hgb (12.0 - 16.0 G/DL) 12.2 Hct (37 - 47 %) 37.2 MCV (81.0 - 99.0 FL) 81.8 MCH (27.0 - 31.0 PG) 26.8 L MCHC (33.0 - 37.0 G/DL) 32.7 L RDW (11.5 - 14.5 %) 15.4 H Plt Count (130 - 400 /CUMM) 138 MPV (7.4 - 10.4 FL) 11.0 H Gran % (42.2 - 75.2 %) 42.3 Lymphocytes % (20.5 - 51.1 %) 50.6 Monocytes % (1.7 - 9.3 %) 6.2 Eosinophils % (0 - 5 %) 0.5 Basophils % (0.0 - 2.0 %) 0.4 Absolute Granulocytes (1.4 - 6.5 /CUMM) 2.7 Absolute Lymphocytes (1.2 - 3.4 /CUMM) 3.3 Absolute Monocytes (0.10 - 0.60 /CUMM) 0.4 Absolute Eosinophils (0.0 - 0.7 /CUMM) 0 Absolute Basophils (0.0 - 0.2 /CUMM) 0 Immunology JORGE Antibody Pending Diffential Diagnosis: No current psychiatric illness detected. 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 Impression: The patient is describing euthymia and denies symptoms of mood disorder, including SI or HI. She reports that her case management coordinator from [facility] visited her today, and that she is participating in a group there, "My poem for the contest on Wednesday is finished." She describes her wonderful friend who cares for her at home, who will be here later. We will ask her for permission to speak with [facility] tomorrow, as they are closed now. The patient has only tried one psychotropic medication in all her visits to inpatient psychiatry, mirtazapine, which made her somnelent for days after. She reports that she had had trial of medication in [place], but cannot recall what they were. Provisional Treatment Plan: 1. No psychotropic interventions at this time. 2. Please refer the patient to her provider, [facility], and provide a discharrge summary We will look in on the patient before discharge, but do not anticipate any change to the plan at this time. Thank you for this consult.
[2018-02-14 21:48] VITALS: BP 128/68
[2018-02-15 06:53] VITALS: BP 118/70
--- NOTE | 2018-02-15 07:46 | PN- Housestaff ---
Sylvain iEd MD,Ami 02/15/18 0746: Subjective Follow-up For: New onset diabetes mellitus Parkinsonism Subjective: Patient visited today, was lying in bed comfortably in no acute distress, was alert and oriented. No fever or chills, no shortness of breathing, no chest pain, no other events. Blood sugar relatively stable in 100s, plan to discharge patient on oral medication and Levemir. Patient was instructed to use insulin injection. Patient is stable to be discharged. Review of Systems Constitutional: Reports: see HPI. Objective Last 24 Hrs of Vital Signs/I&O Vital Signs Date Time Temp Pulse Resp B/P B/P Pulse O2 O2 Flow FiO2 Mean Ox Delivery Rate 02/15 0755 118/70 02/15 0653 98.2 64 18 118/70 97 Room Air 02/14 2148 97.6 70 18 128/68 96 02/14 1422 97.5 74 18 110/70 98 Room Air Intake & Output 02/15 1600 02/15 0800 02/15 0000 Intake Total 300 200 Output Total Balance 300 200 Intake, Oral 300 200 Patient 149 lb Weight Physical Exam General Appearance: Alert, Oriented X3, Cooperative, No Acute Distress Skin: No Significant Lesion Skin Temp/Moisture Exam: Warm/Dry HEENT: Atraumatic, Mucous Membr. moist/pink Cardiovascular: Normal S1, Normal S2 Lungs: Clear to Auscultation, Normal Air Movement Abdomen: Soft, No Tenderness Neurological: Normal Speech Extremities: No Edema Current Medications: Current Medications Sig/Lopez Start time Last Medication Dose Route Stop Time Status Admin Enoxaparin Sodium 40 MG DAILY 02/12 1334 AC 02/15 SC 0754 Glycerin 2 SPRAY Q2P PRN 02/13 1930 AC 02/13 PO 2326 Insulin Aspart 0 TIDAC 02/12 1700 AC 02/14 SC 1138 Insulin Detemir 8 UNITS BID 02/12 1055 AC 02/15 SC 0754 Losartan Potassium 25 MG DAILY 02/12 1445 AC 02/12 PO 1715 Metformin HCl 850 MG 0800,1700 02/13 1700 AC 02/15 PO 0754 Patient Medication 1 ED ONE ONE 02/14 1715 DC Teaching ED 02/14 1716 Pioglitazone HCl 30 MG DAILY 02/13 1300 AC 02/15 PO 0754 Pramipexole 1.5 MG TID 02/12 1422 AC 02/15 Dihydrochloride PO 1328 Assessment/Plan Assessment: 48-year-old woman presented for evaluation of weakness PMH: Parkinson's disease that was diagnosed over 20 years ago, depression/ anxiety, history of prediabetes, history of untreated hepatitis, chronic anemia here for evaluation of her lateral lower extremity weakness. In ED was found to elevated diastolic blood pressure lab significant for hyperglycemia [443], negative acetone and normal anion gap, UA positive for ketones, mild transaminitis Patient was admitted to [facility] floor for management of following Hyperglycemia? New onset diabetes Patient was found to be diabetic, Endocrine consulted and insuline sliding scale was started. patient was started on metformin and actos. with improvement of the blood sugar, patient was discharged on oral medications and Levemir. Patient was instructed to follow with Dr. Shields in outpatient. Rigidity/Weakness/Parkinsonism Could be related to Secondary to parkinson. Neurology was consulted, who recommended to continue pramiprexole TID. Weakness improved and was stable to be discharged. Transaminitis in the setting of untreated hepatitis C we monitored LFTs, chornic related to hep C. No clinical indication of active infection. Patient instructed to follow with PCP. DVT prophylaxis subcutaneous Lovenox Patient is a full code Problem List: 1. Diabetes Pain Ratin Pain Location: None Pain Goal: Pain 4 or less Pain Plan: Continue currnet plan Tomorrow's Labs & Rationales: NONE Pratibha LEMUS,Phoebe 02/15/18 1240: Attending MD Review Statement Attending Statement Attending MD Statement: examined this patient, discuss w/resident/PA/WEB PROGRAMMER, agreed w/resident/PA/WEB PROGRAMMER, reviewed EMR data (avail), discussed with nursing, discussed with case mgmt, amended to note Attending Assessment/Plan: No issues overnight. No new complaints this morning. She has been instructed adequately on administering insulin and checking her blood glucose levels. Has demonstrated appropriate understanding. Endocrinology follow-up appreciated. Patient will be discharged on insulin to oral hypoglycemic medications. She will follow-up with endocrinology service as an outpatient.
[2018-02-15 07:55] VITALS: BP 118/70
[2018-02-15] MEDS ORDERED: LEVEMIR100 UNIT/1 SC ×2 (08:09→08:26)
[2018-02-15] MEDS ORDERED: ACTOS30 M1 PO ×2 (08:09→11:43)
[2018-02-15] MEDS ORDERED: METFORMIN HCL850 M1 PO ×2 (08:09→11:43)
--- NOTE | 2018-02-15 08:16 | Patient Discharge Instructions ---
Discharge Instructions General Discharge Information You were seen/treated for: Uncontrolled diabetes mellitus Watch for these problems: Worsening of weakness, polyuria, dizziness, shortness of breathing, or worsening of any other symptoms Special Instructions: Please follow with your primary care physician within one week of discharge. Please follow with your oim consultant, Dr. Shields with embolic of discharge. Please continue to inject your insulin and check your blood sugar levels regularly Diet Continue normal diet: No Recommended Diet: Diabetic Activity Full Activity/No Limits: No Activity Self Limited: Yes Acute Coronary Syndrome Inclusion Criteria At [place] or during hospital stay patient has or had the following: ACS DIAGNOSIS No Discharge Core Measures Meds if any: Prescribed or Continued at Discharge Meds if any: NOT Prescribed or Continued at Discharge Congestive Heart Failure Inclusion Criteria At [place] or during hospital stay patient has or had the following: CHF DIAGNOSIS No Discharge Core Measures Meds if any: Prescribed or Continued at Discharge Meds if any: NOT Prescribed or Continued at Discharge Cerebrovascular accident Inclusion Criteria At DC or during hospital stay patient has or had the following: CVA/TIA Diagnosis No Discharge Core Measures Meds if any: Prescribed or Continued at Discharge Meds if any: NOT Prescribed or Continued at Discharge Venous thromboembolism Inclusion Criteria VTE Diagnosis No VTE Type NONE VTE Confirmed by (Test) NONE Discharge Core Measures - Per Current guidelines, there needs to be overlap - treatment for the first 5 days of Warfarin therapy. - If discharged on Warfarin prior to 5 days of - overlap therapy, the patient will need to be - assessed for post discharge needs including - *Post discharge parental anticoagulation - *Warfarin and/or parental anticoagulation education - *Follow up date to check INR post discharge At least 5 days overlap therapy as Inpatient No Meds if any: Prescribed or Continued at Discharge Note: Overlap Therapy is Warfarin and Anticoagulant Meds if any: NOT Prescribed or Continued at Discharge
--- NOTE | 2018-02-15 08:22 | PN- Diabetes ---
Assessment/Plan Diabetes Assessment: Patient states she feels okay. She is presently on Levemir 8 units twice a day along with NovoLog sliding scale. In addition we began pioglitazone 30 mg daily and metformin 850 mg twice a day. The patient's blood sugars yesterday were 217 before breakfast, 176 before lunch, 119 before dinner, and 177 at bedtime. This morning her fingerstick blood sugar is 147. Plan: Suggest that we can simplify the patient's regimen. We can change Levemir to 12 units once a day given in the morning. Continue Metformin and pioglitazone as written. We can stop the NovoLog coverage. The patient should check her sugars at home at least twice a day before breakfast and before dinner. Subjective Subjective: Feels okay Review of Systems Constitutional: Denies: chills, fever. Cardiovascular: Denies: chest pain. Respiratory: Denies: cough, short of breath. Gastrointestinal: Denies: abdominal pain, nausea, vomiting. Skin: Reports: no symptoms. Objective Last 24 Hrs of Vital Signs/I&O Vital Signs Date Time Temp Pulse Resp B/P B/P Pulse O2 O2 Flow FiO2 Mean Ox Delivery Rate 02/15 0755 118/70 02/15 0653 98.2 64 18 118/70 97 Room Air 02/148 97.6 70 18 128/68 96 02/14 1422 97.5 74 18 110/70 98 Room Air Intake & Output 02/15 1600 02/15 0802/15 0000 Intake Total 300 200 Output Total Balance 300 200 Intake, Oral 300 200 Patient 149 lb Weight Vital Signs Date Time Temp Pulse Resp B/P B/P Pulse O2 O2 Flow FiO2 Mean Ox Delivery Rate 02/15 0755 118/70 02/15 0653 98.2 64 18 118/70 97 Room Air 02/148 97.6 70 18 128/68 96 02/14 1422 97.5 74 18 110/70 98 Room Air Intake & Output 02/15 1600 02/15 0800 02/15 0000 Intake Total 300 200 Output Total Balance 300 200 Intake, Oral 300 200 Patient 149 lb Weight Physical Exam General Appearance: alert, awake, comfortable Head: normal appearance Neck: normal inspection Respiratory: normal breath sounds Cardiovascular: regular rate/rhythm Abdomen: normal bowel sounds Current Medications: Intake & Output 02/15 1600 02/15 0800 02/15 0000 Intake Total 300 200 Output Total Balance 300 200 Intake, Oral 300 200 Patient 149 lb Weight Findings Pertinent Lab/Rico Results: Laboratory Tests 02/14 02/14 0723 0600 Chemistry Sodium (137 - 145 mmol/L) 137 Potassium (3.5 - 5.1 mmol/L) 4.3 Chloride (98 - 107 mmol/L) 99 Carbon Dioxide (22 - 30 mmol/L) 27 Anion Gap (5 - 16) 11 BUN (7 - 17 mg/dL) 17 Creatinine (0.5 - 1.0 mg/dL) 0.5 Estimated GFR (>60 ml/min) > 60 BUN/Creatinine Ratio (7 - 25 %) 34.0 H Total Bilirubin (0.2 - 1.3 mg/dL) 0.7 Direct Bilirubin (< 0.4 mg/dL) 0.4 AST (14 - 36 U/L) 108 H ALT (9 - 52 U/L) 127 H Alkaline Phosphatase (<127 U/L) 102 Total Protein (6.3 - 8.2 g/dL) 7.4 Albumin (3.5 - 5.0 g/dL) 3.7 Hematology CBC w Diff NO MAN DIFF REQ WBC (4.8 - 10.8 /CUMM) 6.5 RBC (4.20 - 5.40 /CUMM) 4.54 Hgb (12.0 - 16.0 G/DL) 12.2 Hct (37 - 47 %) 37.2 MCV (81.0 - 99.0 FL) 81.8 MCH (27.0 - 31.0 PG) 26.8 L MCHC (33.0 - 37.0 G/DL) 32.7 L RDW (11.5 - 14.5 %) 15.4 H Plt Count (130 - 400 /CUMM) 138 MPV (7.4 - 10.4 FL) 11.0 H Gran % (42.2 - 75.2 %) 42.3 Lymphocytes % (20.5 - 51.1 %) 50.6 Monocytes % (1.7 - 9.3 %) 6.2 Eosinophils % (0 - 5 %) 0.5 Basophils % (0.0 - 2.0 %) 0.4 Absolute Granulocytes (1.4 - 6.5 /CUMM) 2.7 Absolute Lymphocytes (1.2 - 3.4 /CUMM) 3.3 Absolute Monocytes (0.10 - 0.60 /CUMM) 0.4 Absolute Eosinophils (0.0 - 0.7 /CUMM) 0 Absolute Basophils (0.0 - 0.2 /CUMM) 0 Immunology JORGE Antibody Pending
[2018-02-15] MEDS ORDERED: LEVEMIR FL100 UNIT/1 SC ×2 (11:43→13:27)
--- NOTE | 2018-02-15 16:18 | Discharge Summary ---
Visit Information Visit Dates Admission Date: 02/12/18 Discharge Date: 02/15/18 Hospital Course Course Attending Physician: Phoebe Mckinnon MD Primary Care Physician: Parth LEMUS,Bess Kaiser Hospital Course: 48-year-old woman presented for evaluation of weakness PMH: Parkinson's disease that was diagnosed over 20 years ago, depression/ anxiety, history of prediabetes, history of untreated hepatitis, chronic anemia here for evaluation of her lateral lower extremity weakness. In ED was found to elevated diastolic blood pressure lab significant for hyperglycemia [443], negative acetone and normal anion gap, UA positive for ketones, mild transaminitis Patient was admitted to [facility] floor for management of following Hyperglycemia? New onset diabetes Patient was found to be diabetic, Endocrine consulted and insuline sliding scale was started. patient was started on metformin and actos. with improvement of the blood sugar, patient was discharged on oral medications and Levemir. Patient was instructed to follow with Dr. Shields in outpatient. Rigidity/Weakness/Parkinsonism Could be related to Secondary to parkinson. Neurology was consulted, who recommended to continue pramiprexole TID. Weakness improved and was stable to be discharged. Transaminitis in the setting of untreated hepatitis C we monitored LFTs, chornic related to hep C. No clinical indication of active infection. Patient instructed to follow with PCP. Shunt was discharged. Allergies: Coded Allergies: Opioids - Morphine Analogues (BECOMES SO LETHARGIC PEOPLE THINK SHE HAS OVERDOSED MEDS 12/16/17) celecoxib (From CELEBREX) (UNKNOWN 12/16/17) cyclobenzaprine (UNKNOWN 12/16/17) Disposition Summary Disposition Principal Diagnosis: Diabetes mellitus Additional Diagnosis: Consultants Discharge Disposition: home or self care Discharge Instructions General Discharge Information Code Status: Full Code Patient's Diet: Diabetes Patient's Activity: *Tolerated Follow-Up Instructions/Appts: Please follow with your primary care physician within one week of discharge. Please follow with your open tenter operator, Dr. Shields with embolic of discharge. Please continue to inject your insulin and check your blood sugar levels regularly Medications at Discharge Discharge Medications: Continue taking these medications: Pramipexole Di-HCl (Pramipexole Dihydrochloride) 1.5 MG TABLET 1 Tablet ORAL THREE TIMES DAILY Qty = 90 Comments: Last Taken: Time: Start taking the following new medications: Metformin HCl (Metformin HCl) 850 MG TABLET 850 Milligram ORAL 0800,1700 Qty = 60 Refills = 1 Instructions: . Pioglitazone HCl (Actos) 30 MG TABLET 30 Milligram ORAL DAILY Qty = 30 Refills = 1 Instructions: . Insulin Detemir (Levemir Flextouch) 100 UNIT/ML (3 ML) INSULN.PEN 12 Unit Inject into fatty tissue DAILY AM Qty = 15 No Refills Instructions: Please administer in AM. Copies To: Parth LEMUS,Jose; Cornelius LEMUS,Gustavo Rendon Attending MD Review Statement Documenting Attending: Phoebe Mckinnon MD Other Findings: Discharged in stable condition.
== END 2018-02-15 15:15 | disposition home health service (06) | DRG 420 ==
LOC: ERH 08:13 → 2NA 11:39 → ERHI 11:39 → ENTRNSPT 14:14 → EDTRNSPT 14:26 → EDTRNSPTSTS 14:26 → 2NA 14:33 → CMPTRNSPT 14:46 → 2NA 02-13 08:46 → ENPENDDIS 02-15 12:04 → 2NA 02-15 15:15
PROVIDERS: Emergency Medicine; Internal Medicine; Radiology Vascular & Interventional Radiology
DX: E11.65 Type 2 diabetes mellitus with hyperglycemia (principal); Z91.14 Patient's other noncompliance with medication regimen; W19.XXXA Unspecified fall, initial encounter; Y92.009 Unspecified place in unspecified non-institutional (private) residence as the place of occurrence of the external cause; G20 Parkinson's disease; R53.1 Weakness; I10 Essential (primary) hypertension; B19.20 Unspecified viral hepatitis C without hepatic coma; R74.0 Nonspecific elevation of levels of transaminase and lactic acid dehydrogenase [LDH]; D53.9 Nutritional anemia, unspecified; E86.0 Dehydration; F32.9 Major depressive disorder, single episode, unspecified; F41.9 Anxiety disorder, unspecified; Z88.5 Allergy status to narcotic agent; Z88.8 Allergy status to other drugs, medicaments and biological substances; R00.1 Bradycardia, unspecified
CPT/HCPCS: 2NAP; 83519; 36415; 81001; 82436; 96372; 97116-GO; 97161-GP; 97530-GO; 99232; J1650; J2405; J3101

== ENCOUNTER 2018-03-14 15:51 | Emergency (ER) | payer OTHER ==
[~2018-03-14] VITALS: Ht 162.6 cm; Wt 81.6 kg
[~2018-03-14 15:51] MED LIST changes: +ACTOS30 M1 PO; +LEVEMIR FL100 UNIT/1 SC; +LEVEMIR100 UNIT/1 SC; +METFORMIN HCL850 M1 PO
[2018-03-14 16:07] VITALS: BP 165/97
== END 2018-03-14 17:33 | disposition admitted as inpatient to this hospital (09) ==
LOC: ERH 15:51
DX: R26.81 Unsteadiness on feet (principal)

== ENCOUNTER 2018-04-01 16:03 | Emergency (ER) | payer OTHER ==
[~2018-04-01] VITALS: Ht 157.5 cm; Wt 72.6 kg
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
[2018-04-01 17:16] LABS: ABSOLUTE BASOPHIL COUNT 0 /CUMM (0.0-0.2); ABSOLUTE EOSINOPHIL COUNT 0 /CUMM (0.0-0.7); ABSOLUTE GRANULOCYTE CT 3.9 /CUMM (1.4-6.5); ABSOLUTE LYMPH COUNT 3.4 /CUMM (1.2-3.4); ABSOLUTE MONOCYTE COUNT 0.4 /CUMM (0.10-0.60); BASOPHIL % 0.3 % (0.0-2.0); EOSINOPHIL % 0.4 % (0-5); HEMATOCRIT 35.5 % (37-47); MEAN CORPUSCULAR HGB 27.1 PG (27.0-31.0); MEAN CORPUSCULAR HGB CONC 32.8 G/DL (33.0-37.0); MEAN CORPUSCULAR VOLUME 82.6 FL (81.0-99.0); MEAN PLATELET VOLUME 12.4 FL (7.4-10.4); RBC DISTRIBUTION WIDTH 16.1 % (11.5-14.5); WHITE BLOOD CELL COUNT 7.8 /CUMM (4.8-10.8)
[2018-04-01 18:13] LABS: PLATELET COUNT 100 /CUMM (130-400)
[2018-04-01 21:04] VITALS: BP 123/78
--- NOTE | 2018-04-01 21:25 | ED PSY CRISIS COLLATERAL NOTE ---
Collateral Note Collateral Note Family/Inform/Moncho Contacts: Spoke by phone with Misty Teddy, employee relations administrator concrete analyst for [facility], who stated that during her nursing visit earlier today the pt was fine and excited about her move to a new apartment. Ms. Espinal stated the pt has a dx of Diabetes, Parkinsons and footdrop. Ms. Espinal stated the pt is compliant with her medication. Ms. Espinal requested that upon the pts discharge Goldy Shah notify the [facility] and they will resume their visits.
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
== END 2018-04-01 22:12 ==
LOC: ERH 16:03
PROVIDERS: Internal Medicine
DX: R45.1 Restlessness and agitation (principal); G20 Parkinson's disease
CPT/HCPCS: 80307; 81003; G0463; G0480

== ENCOUNTER 2018-05-06 09:34 | Emergency (ER) | payer OTHER ==
[2018-05-06 09:41] VITALS: BP 131/85
== END 2018-05-06 11:13 | disposition admitted as inpatient to this hospital (09) ==
LOC: ERH 09:34
DX: R73.9 Hyperglycemia, unspecified (principal)
CPT/HCPCS: 81025